=== PATIENT | female | born 1945 | race Caucasian/White ===

== ENCOUNTER 2016-10-06 13:16 | Inpatient (IN) | payer MEDICARE, OTHER ==
[2016-10-06] MEDS ORDERED: Zofran 4 MG/2 ML VIAL IV ONE (13:23)
[2016-10-06] MEDS ORDERED: Sodium Chloride 0.9% 1000 ML 1,000 ML IV SCH (13:30)
[2016-10-06] MEDS ORDERED: MORPHINE SULFATE 10 MG/ML IV ONE (13:32)
[2016-10-06 13:37] LABS: BASOPHIL % 0.3 % (0.0-0.4); Eosinophil % 0.3 % (0.00-5.0); Granulocytes % 70.8 % (36.0-66.0); Mean Cell Volume 97.1 fl (78-100); Mean Corpuscular Hemoglobin 32.1 pg (26-32); Mean Platelet Volume 11.4 fl (6-9.5); Monocytes % 11.6 % (0.0-12.0); Platelet Count 252 K/mm3 (150-450); Red Blood Count 4.21 M/mm3 (4.1-5.4); Red Cell Distribution Width 12.7 % (11.5-14.0); White Blood Count 10.2 K/mm3 (4.0-10.5)
[2016-10-06] MEDS ORDERED: Zofran 4 MG/2 ML VIAL ONE (13:40)
[2016-10-06] MEDS ORDERED: MORPHINE SULFATE 10 MG/ML ONE (13:41)
[2016-10-06 14:00] LABS: ALKALINE PHOSPHATASE 69 U/L (46-116); ANION GAP 12.6 MEQ/L (5-15); CHLORIDE 93 mEq/L (98-107); Carbon Dioxide 35.7 mEq/L (21-32); Glucose 159 MG/DL (70-110); SGOT/AST 23 U/L (15-37); SGPT/ALT 27 U/L (12-78); SODIUM 138 mEq/L (136-145); Total Protein 7.9 gm/dL (6.4-8.2)
[2016-10-06 14:04] LABS: Potassium 2.7 mEq/L (3.5-5.1); TROPONIN < 0.017 ng/ml (0.000-0.056)
--- NOTE | 2016-10-06 14:07 | XRAY ---
Indication: Pain following fall. Comparison: None 2 views of the left femur demonstrates osteopenia, small superior acetabular spurring, and faint vascular calcifications. No other bony, articular, or soft tissue abnormalities.
--- NOTE | 2016-10-06 14:12 | XRAY ---
Indication: Left hip pain following fall. Comparison: None AP pelvis demonstrates osteopenia, small bilateral superior acetabular spurring, lower lumbar degenerative changes, and faint vascular calcifications. No other bony, articular, or soft tissue abnormalities.
[2016-10-06 14:13] LABS: BLOOD UREA NITROGEN 11 mg/dL (9-20)
[2016-10-06] MEDS ORDERED: POTASSIUM CHLORIDE 20 mEq IN WATER 100ML 100 ML IV ONE ×2 (14:13→14:21)
[2016-10-06] MEDS ORDERED: Klor Con 10 MEQ PO ONE ×3 (14:13→19:58)
--- NOTE | 2016-10-06 14:26 | ERPHSYRPT ---
- History of Present Illness Time Seen by Provider: 10/06/16 13:20 Source: patient, family Exam Limitations: other Patient Subjective Stated Complaint: pt here for pain to left hip. fell a week ago and pain has not gotten better,and states she is more weak than normal. pt had old cva and has deficits to right arm and leg Triage Nursing Assessment: pt arrived per ambulance for pain to left hip, no bruising noted able to use left leg . alert,resp easy,skin w/d Physician History: PATIENT WITH HISTORY OF TYPE 2 DIABETES, HYPERTENSION, AND PREVIOUS CVA WITH RIGHT HEMIPARESIS STATES SHE FELL TO FLOOR 1 WEEK AGO AND INJURED HER LEFT HIP. NOW HAS PROGRESSIVE WEAKNESS, UNABLE TO STAND. DENIES HEAD, NECK AND BACK INJURY. Occurred: last week Reason for Fall: slipped, fell from standing pos Injuries/Pain Location: lower extremity Loss of Consciousness: no loss of consciousness Quality: sharpness Severity of Pain-Max: moderate Severity of Pain-Current: moderate Modifying Factors: Improves With: movement Associated Symptoms (Fall): other (WEAKNESS) Allergies/Adverse Reactions: tape Allergy (Uncoded 10/06/16 13:24) Home Medications: Amitriptyline HCl 10 mg [Elavil 10 mg] 20 mg PO HS 10/03/12 [History] Glimepiride 2 mg [Amaryl 2 MG] 1 mg PO DAILY 10/03/12 [History] Dicyclomine HCl 20 mg [Bentyl 20 mg] 20 mg PO TID 11/09/13 [History] Diphenoxylate HCl/Atropine [Lomotil] 1 udtab PO .ASNEEDED 11/09/13 [ History] Fexofenadine/Pseudoephedrine [Anitra-D 24 Hour Tablet] 1 each PO DAILY [History] Metoprolol Tartrate 50 mg [Lopressor 50 MG] 125 mg PO BID 11/09/13 [ History] Amitriptyline HCl 10 mg [Elavil 10 mg] 10 mg DAILY 10/06/16 [History] Bifidobacterium Infantis [Align] 4 mg DAILY 10/06/16 [History] Clonidine HCl [Catapres] 0.2 mg DAILY 10/06/16 [History] Hydralazine HCl 100 mg TID 10/06/16 [History] Hx Tetanus, Diphtheria Vaccination/Date Given: No Hx Influenza Vaccination/Date Given: Yes Hx Pneumococcal Vaccination/Date Given: Yes Immunizations Up to Date: Yes - Review of Systems Constitutional: No Fever, No Chills Eyes: No Symptoms Ears, Nose, & Throat: No Symptoms Respiratory: No Symptoms, No Cough, No Dyspnea Cardiac: No Symptoms, No Chest Pain, No Edema, No Syncope Abdominal/Gastrointestinal: No Symptoms, No Abdominal Pain, No Nausea, No Vomiting, No Diarrhea Genitourinary Symptoms: No Dysuria Musculoskeletal: Injury, Joint Pain, No Back Pain, No Neck Pain Skin: No Rash Neurological: No Dizziness, No Focal Weakness, No Sensory Changes Psychological: No Symptoms Endocrine: No Symptoms All Other Systems: Reviewed and Negative - Past Medical History Pertinent Past Medical History: Yes Neurological History: Paralysis, Stroke ENT History: No Pertinent History Cardiac History: Hypertension Respiratory History: Other Endocrine Medical History: Diabetes Type II Musculoskeletal History: Osteoporosis GI Medical History: No Pertinent History History: No Pertinent History Psycho-Social History: No Pertinent History Female Reproductive Disorders: Ovarian Cancer, Uterine Cancer Other Medical History: hyster at age 26 r/t ovarian cancer - Past Surgical History Past Surgical History: Yes Neuro Surgical History: No Pertinent History Cardiac: No Pertinent History Gastrointestinal: Appendectomy, Cholecystectomy Musculoskeletal: No Pertinent History Female Surgical History: Hysterectomy Other Surgical History: T&A, EGD with esoph dilated,,childbirth x two - Social History Smoking Status: Never smoker How long have you smoked: 40 YEARS Exposure to second hand smoke: No Drug Use: none Patient Lives Alone: No - Female History Hx Last Menstrual Period: post - Nursing Vital Signs Nursing Vital Signs: Initial Vital Signs Temperature 98.2 F Temperature Source Oral Pulse Rate 79 Respiratory Rate 16 Blood Pressure [Left Arm] 161/79 Pain Intensity 4 - Claudio Coma Score Best Eye Response (Claudio): (4) open spontaneously Best Verbal Response ([place]): (5) oriented Best Motor Response (Claudio): (6) obeys commands [place] Total: 15 - Physical Exam General Appearance: no apparent distress, alert Head Injury: no evidence of injury Eye Exam: PERRL/EOMI ENT Exam: airway nml Neck Exam: normal inspection, No tenderness Respiratory/Chest Exam: normal breath sounds, No chest tenderness, No respiratory distress Cardiovascular Exam: normal heart sounds, regular rate/rhythm Gastrointestinal Exam: soft, No tenderness, No distention, No guarding, No ecchymosis Back Exam: normal inspection, No vertebral tenderness Extremity Exam: normal inspection, normal range of motion, pelvis stable, bony point tenderness (TENDERNESS LEFT GREATER TROCHANTER, NO DEFORMITY OR ECCHYMOSIS , LEFT PEDIS PULSE 2+), No deformities Peripheral Pulses: carotid (R): 2+, carotid (L): 2+, femoral (R): 2+, femoral (L ): 2+, dorsalis-pedis (R): 2+, dorsalis-pedis (L): 2+ Neurologic Exam: alert, oriented x 3, cooperative, sensation nml, other (RIGHT HEMIPARESIS), No motor deficits Skin Exam: normal color, warm, dry SpO2: 90 Oxygen Delivery: Room Air - Radiology Exams Left Femur X-ray Interpretation: Discussed w/ radiologist, No Fracture (NO DISLOCATION) Pelvis X-ray Interpretation: Discussed w/ radiologist, No Fracture Ordered Tests: Active Orders 24 hr Category Date Time Status Up With Assistance ROUTINE Activity 10/06/16 16:21 Active Accucheck ACHS Care 10/06/16 16:21 Active Admission/Status Order ROUTINE Care 10/06/16 16:21 Active Call Admit Doctor for Orders ON ADMISSION Care 10/06/16 16:25 Active Clean Catch Urine Specimen STAT Care 10/06/16 13:22 Active Code Status Order ROUTINE Care 10/06/16 16:21 Active IV Care Q6H Care 10/06/16 16:21 Active Neuro Checks Q4H Care 10/06/16 16:21 Active Oxygen-ED Only NASAL CANNULA 4 lpm Care 10/06/16 15:40 Active Stefano Hose, Apply ROUTINE Care 10/06/16 16:21 Active Telemetry ROUTINE Care 10/06/16 16:21 Active Vital Signs Q4H Care 10/06/16 16:21 Active 1800 Calorie ADA Diet 10/06/16 Dinner Active FEMUR Stat Exams 10/06/16 13:20 Completed PELVIS (1 OR 2 VIEWS) Stat Exams 10/06/16 13:21 Completed BLOOD CULTURE Stat Lab 10/06/16 16:14 Ordered CBC W DIFF Stat Lab 10/06/16 12:53 Completed CMP Stat Lab 10/06/16 12:53 Completed CULTURE,URINE Stat Lab 10/06/16 15:25 Received TROPONIN Stat Lab 10/06/16 12:53 Completed UA W/ MICROSCOPIC Stat Lab 10/06/16 15:25 Completed Pulse Oximetry CONTINUOUS RT 10/06/16 16:26 Active Transfer Order Routine Transfer 10/06/16 16:20 Ordered Medication Summary Generic Name Dose Route Start Last Admin Trade Name Jesu PRN Reason Stop Dose Admin Acetaminophen 650 mg 10/06/16 16:21 Tylenol 325 Mg PO 11/05/16 16:20 Q4H PRN PRN PAIN AND/OR FEVER Glimepiride 2 mg 10/07/16 08:00 Amaryl 2 Mg PO 11/06/16 07:59 BREAKFAST JERRY Sodium Chloride 1,000 mls @ 50 mls/hr 10/06/16 13:30 10/06/16 14:03 Sodium Chloride 0.9% 1000 Ml IV 11/05/16 13:29 100 mls/hr .Q20H JERRY Administration Ceftriaxone Sodium/Dextrose 1 g in 50 mls @ 100 mls/hr 10/07/16 10:00 Rocephin 1 Gm-D5w 50 Ml Bag IV 11/06/16 09:59 Q24H10 JERRY Potassium Chloride/Sodium Chloride 1,000 mls @ 75 mls/hr 10/06/16 16:30 Sodium Chloride 0.9% W/ 20 Meq Kcl/Liter IV 11/05/16 16:29 .[id number] JERRY Ondansetron HCl 4 mg 10/06/16 16:21 Zofran 4 Mg/2 Ml Vial IV 11/05/16 16:20 Q6H PRN PRN NAUSEA/VOMITING Potassium Chloride 20 meq 10/06/16 22:00 Klor Con 10 Meq PO 11/05/16 21:59 BID JERRY Discontinued Medications Generic Name Dose Route Start Last Admin Trade Name Freq PRN Reason Stop Dose Admin Potassium Chloride 100 mls @ 50 mls/hr 10/06/16 14:13 10/06/16 14:24 Potassium Chloride 20 Meq In Water 100ml IV 10/06/16 16:12 50 mls/hr STAT ONE Administration Potassium Chloride Confirm 10/06/16 14:21 Potassium Chloride 20 Meq In Water 100ml Administered 10/06/16 14:22 Dose 100 mls @ ud IV .STK-MED ONE Ceftriaxone Sodium/Dextrose 1 g in 50 mls @ 100 mls/hr 10/06/16 16:14 16:25 Rocephin 1 Gm-D5w 50 Ml Bag IV 10/06/16 16:43 100 mls/hr STAT STA Administration Ceftriaxone Sodium/Dextrose Confirm 10/06/16 16:22 Rocephin 1 Gm-D5w 50 Ml Bag Administered 10/06/16 16:23 Dose 1 g in 50 mls @ ud IV .STK-MED ONE Morphine Sulfate 6 mg 10/06/16 13:32 10/06/16 14:04 Morphine Sulfate 10 Mg/Ml IV 10/06/16 13:33 6 mg STAT ONE Administration Morphine Sulfate Confirm 10/06/16 13:41 Morphine Sulfate 10 Mg/Ml Administered 10/06/16 13:42 Dose 10 mg .ROUTE .STK-MED ONE Ondansetron HCl 4 mg 10/06/16 13:23 10/06/16 14:04 Zofran 4 Mg/2 Ml Vial IV 10/06/16 13:24 4 mg STAT ONE Administration Ondansetron HCl Confirm 10/06/16 13:40 Zofran 4 Mg/2 Ml Vial Administered 10/06/16 13:41 Dose 4 mg .ROUTE .STK-MED ONE Potassium Chloride 40 meq 10/06/16 14:13 10/06/16 14:22 Klor Con 10 Meq PO 10/06/16 14:14 40 meq STAT ONE Administration Potassium Chloride Confirm 10/06/16 14:21 Klor Con 10 Meq Administered 10/06/16 14:22 Dose 40 meq PO .STK-MED ONE Lab/Rad Data: Laboratory Result Diagrams 10/06/16 12:53 10/06/16 12:53 Laboratory Results 10/06/16 10/06/16 10/06/16 Range/Units 15:25 12:53 12:53 WBC 10.2 (4.0-10.5) K/mm3 RBC 4.21 (4.1-5.4) M/mm3 Hgb 13.5 (12.0-16.0) gm/dl Hct 40.9 (35-47) % MCV 97.1 (78-100) fl MCH 32.1 H (26-32) pg MCHC 33.0 (32-36) g/dl RDW 12.7 (11.5-14.0) % Plt Count 252 (150-450) K/mm3 MPV 11.4 H (6-9.5) fl Gran % 70.8 H (36.0-66.0) % Lymphocytes % 17.0 L (24.0-44.0) % Monocytes % 11.6 (0.0-12.0) % Eosinophils % 0.3 (0.00-5.0) % Basophils % 0.3 (0.0-0.4) % Basophils # 0.03 (0-0.4) Sodium 138 (136-145) mEq/L Potassium 2.7 L* (3.5-5.1) mEq/L Chloride 93 L (98-107) mEq/L Carbon Dioxide 35.7 H (21-32) mEq/L Anion Gap 12.6 (5-15) MEQ/L BUN 11 (9-20) mg/dL Creatinine 0.82 (0.55-1.30) mg/dl Estimated GFR > 60 ML/MIN Glucose 159 H (70-110) MG/DL Calcium 9.5 (8.5-10.1) mg/dL Total Bilirubin 0.80 (0.2-1.0) mg/dL AST 23 (15-37) U/L ALT 27 (12-78) U/L Alkaline Phosphatase 69 (46-116) U/L Troponin I < 0.017 (0.000-0.056) ng/ml Serum Total Protein 7.9 (6.4-8.2) gm/dL Albumin 3.0 L (3.4-5.0) g/dL Ur Collection Type CATH Urine Color YELLOW (YELLOW) Urine Appearance CLOUDY (CLEAR) Urine pH 5.0 (5-6) Ur Specific [place] 1.020 (1.005-1.025) Urine Protein TRACE (Negative) Urine Ketones NEGATIVE (NEGATIVE) Urine Blood 50 (0-5) Hugh/ul Urine Nitrite POSITIVE (NEGATIVE) Urine Bilirubin NEGATIVE (NEGATIVE) Urine Urobilinogen NORMAL (0-1) mg/dL Ur Leukocyte Esterase 2+ (NEGATIVE) Urine Microscopic RBC 5-10 (0-2) /HPF Urine Microscopic WBC 10-15 (0-5) /HPF Ur Epithelial Cells MODERATE (FEW) /HPF Urine Bacteria PACKED (NEGATIVE) /HPF Urine Glucose NEGATIVE (NEGATIVE) mg/dL Specimen Received 10/06/2016 1545 - Progress Progress Note: 10/06/16 14:30 PATIENT GIVEN IV NORMAL SALINE 100ML/HR, ZOFRAN 4MG, MORPHINE 6MG IV, KLOR CON 40MEQ ORALLY FOR SERUM K 2.7, IV K ISAURA 20MEQ IVPB 10/06/16 16:16 PATIENT GIVEN ROCEPHIN 1GM IVPB AFTER 2 SETS OF BLOOD CULTURES DRAWN Discussed with Dr.: Syed (DISCUSSED WITH DR SYED AT 1530 FOR ADMIT) - Departure Time of Disposition: 16:30 Departure Disposition: In-patient Admission Clinical Impression: HYPOKALEMIA, GENERALIZED WEAKNESS, CONTUSION/STRAIN LEFT HIP, URINARY TRACT INFECTION Condition: Stable Critical Care Time: No
[2016-10-06 16:02] LABS: Bilirubin NEGATIVE (NEGATIVE); Blood 50 Ery/ul (0-5); COMPLETE URINE MICROSCOPIC? YES; Collection Type CATH; Glucose NEGATIVE (NEGATIVE); Leukocyte Esterase 2+ (NEGATIVE)
[2016-10-06 16:03] LABS: ADD URINE CULTURE? YES (NO); Bacteria PACKED /HPF (NEGATIVE); Epithelial Cells MODERATE /HPF (FEW)
[2016-10-06] MEDS ORDERED: ROCEPHIN 1 Gm-D5w 50 ml Bag** 1 G/50 ML IVPB IV STA (16:14)
[2016-10-06] MEDS ORDERED: TYLENOL 325 MG PO PRN (16:21)
[2016-10-06] MEDS ORDERED: Zofran 4 MG/2 ML VIAL IV PRN (16:21)
[2016-10-06] MEDS ORDERED: ROCEPHIN 1 Gm-D5w 50 ml Bag** 1 G/50 ML IVPB IV ONE (16:22)
[2016-10-06] MEDS: Sodium Chloride 0.9% W/ 20 mEq KCl/LITER 1,000 ML IV SCH (18:13)
[2016-10-06] MEDS ORDERED: Lomotil PO PRN (21:03)
[2016-10-06] MEDS: ELAVIL 10 MG PO SCH (21:44)
[2016-10-06] MEDS: Klor Con 10 MEQ PO SCH (21:44)
[2016-10-06] MEDS: Lopressor 50 MG PO SCH (21:45)
[2016-10-06] MEDS: BENTYL 20 MG PO SCH (21:46)
[2016-10-06] MEDS: Apresoline 25 MG TABLET PO SCH (21:46)
[2016-10-06] MEDS: NORCO 7.5/325 MG TAB PO SCH (21:47)
[2016-10-07] MEDS: Amaryl 2 MG PO SCH (07:45)
[2016-10-07] MEDS: Sodium Chloride 0.9% W/ 20 mEq KCl/LITER 1,000 ML IV SCH ×2 (07:45→21:40)
--- NOTE | 2016-10-07 08:58 | PCM.HP ---
History of Present Illness - Chief Complaint Chief Complaint: c/o hip pain History of Present Illness: is a 71 year old female.pt here for pain to left hip. fell a week ago and pain has not gotten better,and states she is more weak than normal. pt had old cva and has deficits to right arm and leg - Review of Systems Constitutional: No Fever, No Chills Eyes: No Symptoms Ears, Nose, & Throat: No Symptoms Respiratory: No Cough, No Short Of Breath Cardiac: No Chest Pain, No Edema, No Syncope Abdominal/Gastrointestinal: No Abdominal Pain, No Nausea, No Vomiting, No Diarrhea Genitourinary Symptoms: No Dysuria Musculoskeletal: No Back Pain, No Neck Pain Skin: No Rash Neurological: No Dizziness, No Focal Weakness, No Sensory Changes Psychological: No Symptoms Endocrine: No Symptoms Hematologic/Lymphatic: No Symptoms Immunological/Allergic: No Symptoms Medications & Allergies Home Medications: Home Medication List Amitriptyline HCl 10 mg [Elavil 10 mg] 20 mg PO HS 10/03/12 [History Confirmed 10/06/16] Glimepiride 2 mg [Amaryl 2 MG] 1 mg PO DAILY 10/03/12 [History Confirmed 10/06/16] Dicyclomine HCl 20 mg [Bentyl 20 mg] 20 mg PO QID 11/09/13 [History Confirmed 10/06/16] Diphenoxylate HCl/Atropine [Lomotil] 1 udtab PO QIDPRN PRN 11/09/13 [ History Confirmed 10/06/16] Fexofenadine/Pseudoephedrine [Anitra-D 24 Hour Tablet] 1 each PO DAILY [History Confirmed 10/06/16] Metoprolol Tartrate 50 mg [Lopressor 50 MG] 125 mg PO BID 11/09/13 [ History Confirmed 10/06/16] Bifidobacterium Infantis [Align] 4 mg PO DAILY 10/06/16 [History Confirmed 10/06] Cholestyramine Light 4 gm [QUESTRAN Light 4 GM Packet] 4 gm PO DAILY 10/06 [History Confirmed 10/06/16] Clonidine HCl [Catapres] 0.2 mg TOP WEEKLY 10/06/16 [History Confirmed 10/06/16] Hydralazine HCl 100 mg PO TID 10/06/16 [History Confirmed 10/06/16] Hydrocodone Bit/Acetaminophen [Hydrocodon-Acetaminoph 7.5-325] 1 each PO BIDPRN PRN 10/06/16 [History Confirmed 10/06/16] Allergies/Adverse Reactions: Allergies Allergy/AdvReac Type Severity Reaction Status Date / Time tape Allergy Uncoded 10/06/16 13:24 - Past Medical History Past Medical History: Yes Neurological History: Paralysis, Stroke ENT History: No Pertinent History Cardiac History: Hypertension Respiratory History: Other Endocrine Medical History: Diabetes Type II Musculoskelatal History: Osteoporosis GI Medical History: No Pertinent History History: No Pertinent History Pyscho-Social History: No Pertinent History Reproductive Disorders: Ovarian Cancer, Uterine Cancer Comment: hyster at age 26 r/t ovarian cancer - Female History Hx Last Menstrual Period: post Are you now?: No - Past Surgical History Past Surgical History: Yes Neuro Surgical History: No Pertinent History Cardiac History: No Pertinent History Respiratory Surgery: No Pertinent History GI Surgical History: Appendectomy, Cholecystectomy Musculskeletal Surgical Hx: No Pertinent History Female Surgical History: Hysterectomy Other Surgical History: T&A, EGD with esoph dilated,,childbirth x two - Social History Smoking Status: Former smoker How long have you smoked: 40 YEARS Exposure to second hand smoke: No Alcohol: None Drug Use: none - Physical Exam Vital Signs: Vital Signs - 24 hr Temp Pulse Resp BP Pulse Ox 10/07/16 08:00 98.7 F 82 20 120/57 93 L 10/07/16 07:15 93 L 10/07/16 04:00 98.5 F 79 20 135/60 99 10/07/16 00:00 98.8 F 79 18 111/54 96 10/06/16 21:00 98.0 F 108 H 18 140/88 97 10/06/16 20:07 99.0 F 108 H 18 140/88 97 10/06/16 20:04 96 10/06/16 18:06 18 10/06/16 17:41 98.2 F 79 161/79 95 10/06/16 17:09 95 10/06/16 17:05 99.4 F 110 H 20 167/78 94 L 10/06/16 16:54 99.4 F 110 H 18 167/78 10/06/16 16:53 90 L 10/06/16 16:26 95 10/06/16 15:20 79 16 161/79 97 10/06/16 13:48 98.2 F 122 H 16 164/82 90 L 10/06/16 13:22 113 H 16 150/72 91 L 10/06/16 13:16 16 147/72 95 Oxygen-Last 24 hours O2 Percentage 5 Liters = 40% O2 Percentage 4 Liters = 36% O2 Percentage 4 Liters = 36% O2 Percentage 1 Liter = 24% O2 Percentage 1 Liter = 24% O2 Percentage 4 Liters = 36% O2 Percentage 4 Liters = 36% O2 Percentage 4 Liters = 36% General Appearance: no apparent distress, alert Neurologic Exam: alert, oriented x 3, cooperative, normal mood/affect, nml cerebellar function, nml station & gait, sensation nml, No motor deficits Eye Exam: PERRL/EOMI, eyes nml inspection Ears, Nose, Throat Exam: normal ENT inspection, TMs normal, pharynx normal, moist mucous membranes Neck Exam: normal inspection, non-tender, supple, full range of motion Respiratory Exam: normal breath sounds, lungs clear, No respiratory distress Cardiovascular Exam: regular rate/rhythm, normal heart sounds, normal peripheral pulses Gastrointestinal/Abdomen Exam: soft, normal bowel sounds, No tenderness, No mass Back Exam: normal inspection, normal range of motion, No CVA tenderness, No vertebral tenderness Extremity Exam: normal inspection, normal range of motion, pelvis stable Skin Exam: normal color, warm, dry, No rash Lymphatic Exam: No adenopathy Results - Labs Lab/Micro Results: Accuchecks Date 10/06/16 Accucheck Value: 131 Accuchecks Date 10/06/16 Accucheck Value: 131 - Other Procedures and Tests Respiratory Therapy 10/06/16 17:08 Oxygen NASAL CANNULA 4 lpm Assessment/Plan (1) Urinary tract infectious disease Current Visit: Yes Status: Acute Code(s): N39.0 - URINARY TRACT INFECTION, SITE NOT SPECIFIED (2) Dehydration Current Visit: Yes Status: Acute Code(s): E86.0 - DEHYDRATION (3) Fall Current Visit: Yes Status: Acute Code(s): W19.XXXA - UNSPECIFIED FALL, INITIAL ENCOUNTER (4) Hypertensive disorder, systemic arterial Current Visit: Yes Status: Chronic Code(s): I27.2 - OTHER SECONDARY PULMONARY HYPERTENSION
[2016-10-07] MEDS: ROCEPHIN 1 Gm-D5w 50 ml Bag** 1 G/50 ML IVPB IV SCH (09:18)
[2016-10-07] MEDS: BENTYL 20 MG PO SCH ×4 (09:19→21:58)
[2016-10-07] MEDS: Apresoline 25 MG TABLET PO SCH ×3 (09:19→21:58)
[2016-10-07] MEDS: Klor Con 10 MEQ PO SCH ×2 (09:19→21:58)
[2016-10-07] MEDS: Acidophilus TABLET PO SCH (09:19)
[2016-10-07] MEDS: Lopressor 50 MG PO SCH ×2 (09:20→21:59)
[2016-10-07] MEDS: QUESTRAN Light 4 GM Packet PO SCH (09:26)
[2016-10-07] MEDS: CLARITIN-D 24HR TABLET PO SCH (09:26)
[2016-10-07] MEDS ORDERED: PSEUDOEPHEDRINE PO SCH (10:00)
[2016-10-07] MEDS ORDERED: Catapres TTS-2 PATCH TOP SCH (10:00)
[2016-10-07] MEDS ORDERED: FEXOFENADINE PO SCH (10:00)
[2016-10-07 10:37] LABS: Mean Cell Volume 99.7 fl (78-100); Mean Corpuscular Hemoglobin 31.7 pg (26-32); Mean Platelet Volume 10.6 fl (6-9.5); Platelet Count 266 K/mm3 (150-450); Red Blood Count 3.94 M/mm3 (4.1-5.4); Red Cell Distribution Width 12.8 % (11.5-14.0); White Blood Count 8.2 K/mm3 (4.0-10.5)
[2016-10-07 11:08] LABS: ALBUMIN 2.4 g/dL (3.4-5.0); ANION GAP 10.9 MEQ/L (5-15); BLOOD UREA NITROGEN 13 mg/dL (9-20); CHLORIDE 98 mEq/L (98-107); Carbon Dioxide 33.3 mEq/L (21-32); Glucose 164 MG/DL (70-110); Potassium 3.9 mEq/L (3.5-5.1); SODIUM 138 mEq/L (136-145)
[2016-10-07 11:24] LABS: ALKALINE PHOSPHATASE 65 U/L (46-116); SGOT/AST 27 U/L (15-37); SGPT/ALT 23 U/L (12-78); Total Protein 6.8 gm/dL (6.4-8.2)
[2016-10-07] MEDS: ELAVIL 10 MG PO SCH (21:58)
[2016-10-08] MEDS: Amaryl 2 MG PO SCH (10:18)
[2016-10-08] MEDS: BENTYL 20 MG PO SCH ×4 (10:20→21:43)
[2016-10-08] MEDS: Acidophilus TABLET PO SCH (10:20)
[2016-10-08] MEDS: Klor Con 10 MEQ PO SCH ×2 (10:21→21:43)
[2016-10-08] MEDS: CLARITIN-D 24HR TABLET PO SCH (10:23)
[2016-10-08] MEDS: Lopressor 50 MG PO SCH ×2 (10:24→21:40)
[2016-10-08] MEDS: ROCEPHIN 1 Gm-D5w 50 ml Bag** 1 G/50 ML IVPB IV SCH (10:31)
[2016-10-08] MEDS: QUESTRAN Light 4 GM Packet PO SCH (10:33)
[2016-10-08] MEDS: Apresoline 25 MG TABLET PO SCH ×3 (10:47→21:42)
[2016-10-08] MEDS: Sodium Chloride 0.9% W/ 20 mEq KCl/LITER 1,000 ML IV SCH ×2 (11:17→23:34)
--- NOTE | 2016-10-08 15:41 | PROG NOTE ---
DATE: 10/08/16 Chart reviewed. Events noted. At the time of this evaluation, patient is alert, awake, and comfortable. States her left hip pain has improved. Denies any other complaints. VITALS: BP 170/76, heart rate 91, respiratory rate 18, temperature 98.4, O2 saturations of 92% on 4 liters. HEENT: No pallor or icterus is noted. NECK: No JVD present. CVS: S1 and S2 present. RESPIRATORY: Breath sounds bilaterally diminished and clear to auscultation. ABDOMEN: Obese, soft, nontender. NEURO: She is alert and oriented X 3. EXTREMITIES: Reveals no edema on bilateral lower extremities. Range of movement of left hip is mildly painful. LABORATORY DATA: There were no new labs today. Urine cultures from 10/06/16 show gram negative ID. Blood cultures are pending. Medications were reviewed. ASSESSMENT: 71 y/o woman with impression: 1. CONTUSION OF LEFT HIP - CLINICALLY IMPROVED. 2. URINARY TRACT INFECTION. 3. HYPOKALEMIA RESOLVED STATUS POST TREATMENT. 4. HYPERTENSION/CORONARY ARTERY DISEASE. 5. PRIOR HISTORY OF CEREBROVASCULAR ACCIDENT. 6. DIABETES MELLITUS. PLAN: 1. Continue broad spectrum IV antibiotics. 2. Continue PRN analgesics. 3. PT/OT evaluation. 4. Discharge planning (patient has agreed to go to [facility]). Plan was discussed with patient. She seems to be in understanding and agreement. Discussed with patient's nurse and high risk case manager.
[2016-10-08] MEDS: ELAVIL 10 MG PO SCH (21:43)
[2016-10-09] MEDS: Klor Con 10 MEQ PO SCH ×2 (08:18→22:43)
[2016-10-09] MEDS: Acidophilus TABLET PO SCH (08:18)
[2016-10-09] MEDS: CLARITIN-D 24HR TABLET PO SCH (08:19)
[2016-10-09] MEDS: Apresoline 25 MG TABLET PO SCH ×3 (08:19→22:42)
[2016-10-09] MEDS: Amaryl 2 MG PO SCH (08:19)
[2016-10-09] MEDS: QUESTRAN Light 4 GM Packet PO SCH (08:20)
[2016-10-09] MEDS: BENTYL 20 MG PO SCH ×4 (08:20→22:43)
[2016-10-09] MEDS: Lopressor 50 MG PO SCH ×2 (08:33→22:42)
--- NOTE | 2016-10-09 09:54 | PCM.NOTE ---
Date and Time: 10/09/16951 Subjective Assessment: doing better - Review of Systems Constitutional: No Fever, No Chills Eyes: No Symptoms Ears, Nose, & Throat: No Symptoms Respiratory: No Cough, No Short Of Breath Cardiac: No Chest Pain, No Edema, No Syncope Abdominal/Gastrointestinal: No Abdominal Pain, No Nausea, No Vomiting, No Diarrhea Genitourinary Symptoms: No Dysuria Musculoskeletal: No Back Pain, No Neck Pain Skin: No Rash Neurological: No Dizziness, No Focal Weakness, No Sensory Changes Psychological: No Symptoms Endocrine: No Symptoms Hematologic/Lymphatic: No Symptoms Immunological/Allergic: No Symptoms Objective Exam General Appearance: no apparent distress, alert Neurologic Exam: alert, oriented x 3, cooperative, normal mood/affect, nml cerebellar function, sensation nml, No motor deficits Skin Exam: normal color, warm, dry Eye Exam: PERRL, EOMI, eyes nml inspection Ears, Nose, Throat Exam: normal ENT inspection, pharynx normal, moist mucous membranes Neck Exam: normal inspection, non-tender, supple, full range of motion Respiratory Exam: normal breath sounds, lungs clear, No respiratory distress Cardiovascular Exam: regular rate/rhythm, normal heart sounds Gastrointestinal/Abdomen Exam: soft, No tenderness, No mass Extremity Exam: normal inspection, normal range of motion Back Exam: normal inspection, normal range of motion, No CVA tenderness, No vertebral tenderness Pelvic Exam: deferred Rectal Exam: deferred OBJECTIVE DATA Vital Signs: Vital Signs - 24 hr Temp Pulse Resp BP Pulse Ox 10/09/16 08:00 18 10/09/16 07:52 97.8 F 87 18 163/73 94 L 10/09/16 07:34 94 L 10/09/16 04:00 97.9 F 90 20 158/65 93 L 10/09/16 00:00 98.0 F 95 H 19 148/67 94 L 10/08/16 20:28 98 10/08/16 20:00 20 10/08/16 19:57 98.4 F 83 20 131/62 94 L 10/08/16 16:43 98.1 F 75 18 141/84 91 L 10/08/16 16:00 98.4 F 85 18 180/76 94 L 10/08/16 12:00 18 10/08/16 11:29 98.4 F 85 18 180/76 94 L Oxygen-Last 24 hours O2 Percentage 2 Liters = 28% O2 Percentage 2 Liters = 28% O2 Percentage 2 Liters = 28% O2 Percentage 4 Liters = 36% O2 Percentage 4 Liters = 36% O2 Percentage 2 Liters = 28% Pain Assessment - Last Documented Pain Scale Used FLACC Intake and Output: Intake & Output 10/06/16 10/07/16 10/08/16 10/09/16 11:59 11:59 11:59 11:59 Intake Total 220 3603 4021 Output Total 400 Balance 220 3203 4021 Weight 78.67 kg Lab Results: Accuchecks Date 10/08/16 Date 10/08/16 Date 10/08/16 Time 21:00 Time 16:30 Time 11:30 Accucheck Value: 117 Accucheck Value: 145 Accucheck Value: 169 Assessment/Plan (1) Urinary tract infectious disease Current Visit: Yes Status: Acute Code(s): N39.0 - URINARY TRACT INFECTION, SITE NOT SPECIFIED (2) Dehydration Current Visit: Yes Status: Resolved Code(s): E86.0 - DEHYDRATION (3) Fall Current Visit: Yes Status: Resolved Code(s): W19.XXXA - UNSPECIFIED FALL, INITIAL ENCOUNTER (4) Hypertensive disorder, systemic arterial Current Visit: Yes Status: Chronic Code(s): I27.2 - OTHER SECONDARY PULMONARY HYPERTENSION
[2016-10-09] MEDS: ROCEPHIN 1 Gm-D5w 50 ml Bag** 1 G/50 ML IVPB IV SCH (11:00)
[2016-10-09] MEDS: Sodium Chloride 0.9% W/ 20 mEq KCl/LITER 1,000 ML IV SCH (12:28)
[2016-10-09] MEDS: ELAVIL 10 MG PO SCH (22:42)
[2016-10-09] MEDS: NORCO 7.5/325 MG TAB PO SCH (22:42)
--- NOTE | 2016-10-10 09:06 | PCM.DS ---
Discharge Summary Date of Admission: 10/07/16 08:56 Admitting Physician: MALGORZATA QUEEN Primary Care Provider: MALGORZATA QUEEN Allergies Allergies tape Allergy (Uncoded 10/06/16 13:24) Hospital Summary - Hospital Course Hospital Course: Chief Complaint Diagnosis UTI, HYPOKALEMIA Allergies Allergy/AdvReac Type Severity Reaction Status Date / Time tape Allergy Uncoded 10/06/16 13:24 Vital Signs (Last 24 hours) Temp Pulse Resp BP Pulse Ox 10/10/16 07:42 98.3 F 68 18 173/72 95 10/10/16 07:31 94 L 10/10/16 04:00 97.7 F 71 20 147/67 95 10/10/16 00:00 98.1 F 82 19 161/74 94 L 10/09/16 20:00 97.4 F 84 19 128/61 93 L 10/09/16 16:00 98.6 F 75 18 121/63 95 10/09/16 12:00 18 10/09/16 11:43 98.4 F 75 18 132/63 96 Home Medications Medication Instructions Recorded Confirmed Last Taken Type Bifidobacterium Infantis [Align] 4 mg PO DAILY 10/06/16 10/06/16 Unknown History Cholestyramine Light 4 gm 4 gm PO DAILY 10/06/16 10/06/16 Unknown History [QUESTRAN Light 4 GM Packet] Clonidine HCl [Catapres] 0.2 mg TOP WEEKLY 10/06/16 10/06/16 09/24/16 History Hydralazine HCl 100 mg PO TID 10/06/16 10/06/16 Unknown History Hydrocodone Bit/Acetaminophen 1 each PO BIDPRN PRN 10/06/16 10/06/16 Unknown History [Hydrocodon-Acetaminoph 7.5-325] Current Medications Generic Name Dose Route Start Last Admin Trade Name Freq PRN Reason Stop Dose Admin Acetaminophen 650 mg 10/06/16 16:21 Tylenol 325 Mg PO 11/05/16 16:20 Q4H PRN PRN PAIN AND/OR FEVER Hydrocodone Bitart/Acetaminophen 1 tab 10/06/16 21:15 10/09/16 22:42 Dafter 7.5/325 Mg Tab PO 10/11/16 21:14 1 tab BID PRN JERRY Administration Amitriptyline HCl 20 mg 10/06/16 22:00 10/09/16 22:42 Elavil 10 Mg PO 11/05/16 21:59 20 mg HS JERRY Administration Cholestyramine Resin 4 gm 10/07/16 10:00 10/09/16 08:20 Questran Light 4 Gm Packet PO 11/06/16 09:59 4 gm DAILY JERRY Administration Clonidine HCl 0.2 mg 10/07/16 10:00 10/07/16 12:33 Catapres Tts-2 Patch TOP 11/06/16 09:59 0.2 mg Q7D JERRY Administration Dicyclomine HCl 20 mg 10/06/16 22:00 10/09/16 22:43 Bentyl 20 Mg PO 11/05/16 21:59 20 mg QID JERRY Administration Diphenoxylate HCl/Atropine 1 tablet 10/06/16 21:03 Lomotil PO 11/05/16 21:02 QID PRN PRN DIARRHEA Glimepiride 1 mg 10/07/16 08:00 10/09/16 08:19 Amaryl 2 Mg PO 11/06/16 07:59 1 mg BREAKFAST JERRY Administration Hydralazine HCl 100 mg 10/06/16 22:00 10/09/16 22:42 Apresoline 25 Mg Tablet PO 11/05/16 21:59 100 mg TID JERRY Administration Ceftriaxone Sodium/Dextrose 1 g in 50 mls @ 100 mls/hr 10/07/16 10:00 11:00 Rocephin 1 Gm-D5w 50 Ml Bag IV 11/06/16 09:59 100 mls/hr Q24H10 JERRY Administration Potassium Chloride/Sodium Chloride 1,000 mls @ 75 mls/hr 10/06/16 16:30 10/09 12:28 Sodium Chloride 0.9% W/ 20 Meq Kcl/Liter IV 11/05/16 16:29 75 mls/hr .[id number] JERRY Administration Lactobacillus Acidophilus 1 tab 10/07/16 10:00 10/09/16 08:18 Acidophilus Tablet PO 11/06/16 09:59 1 tab DAILY JERRY Administration Loratadine/Pseudoephedrine Sulfate 1 each 10/07/16 10:00 10/09/16 08:19 Claritin-D 24hr Tablet PO 11/06/16 09:59 1 each DAILY JERRY Administration Metoprolol Tartrate 125 mg 10/06/16 22:00 10/09/16 22:42 Lopressor 50 Mg PO 11/05/16 21:59 125 mg BID JERRY Administration Ondansetron HCl 4 mg 10/06/16 16:21 Zofran 4 Mg/2 Ml Vial IV 11/05/16 16:20 Q6H PRN PRN NAUSEA/VOMITING Potassium Chloride 20 meq 10/06/16 22:00 10/09/16 22:43 Klor Con 10 Meq PO 11/05/16 21:59 20 meq BID JERRY Administration Discontinued Medications Generic Name Dose Route Start Last Admin Trade Name Freq PRN Reason Stop Dose Admin Sodium Chloride 1,000 mls @ 50 mls/hr 10/06/16 13:30 10/06/16 14:03 Sodium Chloride 0.9% 1000 Ml IV 11/05/16 13:29 100 mls/hr .Q20H JERRY Administration Potassium Chloride 100 mls @ 50 mls/hr 10/06/16 14:13 10/06/16 14:24 Potassium Chloride 20 Meq In Water 100ml IV 10/06/16 16:12 50 mls/hr STAT ONE Administration Potassium Chloride Confirm 10/06/16 14:21 Potassium Chloride 20 Meq In Water 100ml Administered 10/06/16 14:22 Dose 100 mls @ ud IV .STK-MED ONE Ceftriaxone Sodium/Dextrose 1 g in 50 mls @ 100 mls/hr 10/06/16 16:14 16:25 Rocephin 1 Gm-D5w 50 Ml Bag IV 10/06/16 16:43 100 mls/hr STAT STA Administration Ceftriaxone Sodium/Dextrose Confirm 10/06/16 16:22 Rocephin 1 Gm-D5w 50 Ml Bag Administered 10/06/16 16:23 Dose 1 g in 50 mls @ ud IV .STK-MED ONE Morphine Sulfate 6 mg 10/06/16 13:32 10/06/16 14:04 Morphine Sulfate 10 Mg/Ml IV 10/06/16 13:33 6 mg STAT ONE Administration Morphine Sulfate Confirm 10/06/16 13:41 Morphine Sulfate 10 Mg/Ml Administered 10/06/16 13:42 Dose 10 mg .ROUTE .STK-MED ONE Ondansetron HCl 4 mg 10/06/16 13:23 10/06/16 14:04 Zofran 4 Mg/2 Ml Vial IV 10/06/16 13:24 4 mg STAT ONE Administration Ondansetron HCl Confirm 10/06/16 13:40 Zofran 4 Mg/2 Ml Vial Administered 10/06/16 13:41 Dose 4 mg .ROUTE .STK-MED ONE Potassium Chloride 40 meq 10/06/16 14:13 10/06/16 14:22 Klor Con 10 Meq PO 10/06/16 14:14 40 meq STAT ONE Administration Potassium Chloride Confirm 10/06/16 14:21 Klor Con 10 Meq Administered 10/06/16 14:22 Dose 40 meq PO .STK-MED ONE Potassium Chloride Confirm 10/06/16 19:58 Klor Con 10 Meq Administered 10/06/16 19:59 Dose 20 meq PO .STK-MED ONE Intake & Output (Last 24 hours) 10/07/16 10/08/16 10/09/16 10/10/16 11:59 11:59 11:59 11:59 Intake Total 1416 3603 4021 2830 Output Total 400 3850 Balance 1416 3203 4021 -1020 Weight 78.67 kg 78.67 kg Microbiology Results (Last 24 hours) 10/09/16 12:01 Catherized - Pending Orders (Last 24 hours) Category Date Time Status Catheter Care Record Q6 Care 10/09/16 09:58 Active Govea [Catheter-Ajo Govea] STAT Care 10/09/16 09:57 Active CULTURE,URINE Routine Lab 10/09/16 12:01 Received - Vitals & Intake/Output Vital Signs: Vital Signs Temperature 98.3 F 10/10/16 07:42 Pulse Rate 68 10/10/16 07:42 Respiratory Rate 18 10/10/16 07:42 Blood Pressure 173/72 10/10/16 07:42 O2 Sat by Pulse Oximetry 95 10/10/16 07:42 Oxygen-Last Documented O2 Percentage 2 Liters = 28% Intake & Output: Intake & Output 07/14/17 07/15/17 07/16/17 07/17/17 11:59 11:59 11:59 11:59 Intake Total 220 3603 4021 2830 Output Total 400 3850 Balance 220 3203 4021 -1020 Weight 78.67 kg - Lab Result Diagrams: 10/07/16 09:31 10/07/16 10:30 Lab Results-Last 24 Hrs: Accuchecks Date 10/09/16 Date 10/09/16 Date 10/09/16 Time 21:00 Time 16:30 Time 11:30 Accucheck Value: 107 Accucheck Value: 85 Accucheck Value: 166 Micro Results-Entire Visit: Accuchecks Date 10/09/16 Date 10/09/16 Date 10/09/16 Time 21:00 Time 16:30 Time 11:30 Accucheck Value: 107 Accucheck Value: 85 Accucheck Value: 166 - Procedures and Test Procedures and Tests throughout Hospitalization: Therapy Orders & Screens 10/08/16 11:45 PT Eval & Treat (MD Order) ROUTINE Evaluate: Yes Treat: Yes Reason for Eval:: hip p[ain Diagnosis: UTI, HYPOKALEMIA Discharge Exam General Appearance: no apparent distress, alert Neurologic Exam: alert, oriented x 3, cooperative, normal mood/affect, nml cerebellar function, sensation nml, No motor deficits Skin Exam: normal color, warm, dry Eye Exam: PERRL, EOMI, eyes nml inspection Ears, Nose, Throat Exam: normal ENT inspection, pharynx normal, moist mucous membranes Neck Exam: normal inspection, non-tender, supple, full range of motion Respiratory Exam: normal breath sounds, lungs clear, No respiratory distress Cardiovascular Exam: regular rate/rhythm, normal heart sounds Gastrointestinal/Abdomen Exam: soft, No tenderness, No mass Extremity Exam: normal inspection, normal range of motion Back Exam: normal inspection, normal range of motion, No CVA tenderness, No vertebral tenderness Pelvic Exam: deferred Rectal Exam: deferred Final Diagnosis/Problem List - Final Discharge Diagnosis/Problem (1) Urinary tract infectious disease Current Visit: Yes Status: Resolved (2) Dehydration Current Visit: Yes Status: Resolved (3) Fall Current Visit: Yes Status: Resolved (4) Hypertensive disorder, systemic arterial Current Visit: Yes Status: Chronic - Discharge Discharge Date: 10/10/16 Disposition: DC TO [facility] Condition: Stable Prescriptions: Continue Amitriptyline HCl 10 mg [Elavil 10 mg] 20 mg PO HS Glimepiride 2 mg [Amaryl 2 MG] 1 mg PO DAILY Dicyclomine HCl 20 mg [Bentyl 20 mg] 20 mg PO QID Diphenoxylate HCl/Atropine [Lomotil] 1 udtab PO QIDPRN PRN PRN Reason: Diarrhea Metoprolol Tartrate 50 mg [Lopressor 50 MG] 125 mg PO BID Fexofenadine/Pseudoephedrine [Anitra-D 24 Hour Tablet] 1 each PO DAILY Clonidine HCl [Catapres] 0.2 mg TOP WEEKLY Hydralazine HCl 100 mg PO TID Bifidobacterium Infantis [Align] 4 mg PO DAILY Cholestyramine Light 4 gm [QUESTRAN Light 4 GM Packet] 4 gm PO DAILY Hydrocodone Bit/Acetaminophen [Hydrocodon-Acetaminoph 7.5-325] 1 each PO BIDPRN PRN PRN Reason: Pain Additional Instructions: Physical therapy and occupational therapy, on consult Follow up with: MALGORZATA QUEEN [Primary Care Provider] - 1 Week Forms: Patient Portal Information
[2016-10-10] MEDS: Klor Con 10 MEQ PO SCH (09:08)
[2016-10-10] MEDS: Apresoline 25 MG TABLET PO SCH (09:08)
[2016-10-10] MEDS: QUESTRAN Light 4 GM Packet PO SCH (09:08)
[2016-10-10] MEDS: Lopressor 50 MG PO SCH (09:10)
[2016-10-10] MEDS: Acidophilus TABLET PO SCH (09:10)
[2016-10-10] MEDS: CLARITIN-D 24HR TABLET PO SCH (09:10)
[2016-10-10] MEDS: Amaryl 2 MG PO SCH (09:11)
[2016-10-10] MEDS: BENTYL 20 MG PO SCH (09:11)
[2016-10-10] MEDS: ROCEPHIN 1 Gm-D5w 50 ml Bag** 1 G/50 ML IVPB IV SCH (10:56)
--- NOTE | 2016-10-10 11:46 | XRAY ---
Indication: custodial placement. Comparison: October 27, 2010. Portable chest rotated today with cardiac silhouette obscuring left lung base. Remaining lungs clear. Heart is not enlarged. Vascularity normal. Bony thorax intact again with mild osteopenia, old right eighth rib fracture, and old right humeral neck fracture. Impression: Limited nonacute chest with chronic features.
[2016-10-10 12:29] VITALS: BP 133/65; PULSE 79; O2SAT 92
== END 2016-10-10 13:24 | DRG 641 ==
LOC: ED 13:16 → MED SURG 16:48 → OBSVTOIN 10-07 08:56
PROVIDERS: ADMIT General Practice; ATTEND General Practice
DX: E86.0 Dehydration (principal); S70.02XA Contusion of left hip, initial encounter; W01.198D Fall on same level from slipping, tripping and stumbling with subsequent striking against other object, subsequent encounter; I27.2 Other secondary pulmonary hypertension; E11.9 Type 2 diabetes mellitus without complications; M81.0 Age-related osteoporosis without current pathological fracture; E87.6 Hypokalemia; Z85.43 Personal history of malignant neoplasm of ovary; Z85.42 Personal history of malignant neoplasm of other parts of uterus; Z86.73 Personal history of transient ischemic attack (TIA), and cerebral infarction without residual deficits
CPT/HCPCS: 36000; 36415; 71010; 72170; 73552; 80053; 81000; 82962; 83036; 84484; 85025; 85027; 87040; 87077; 87086; 87186; 93268; 94760; 96360; 96361; 96365; 96367; 96374; 96375; 99285; G0378; J0696; J2270; J2405; J3480; A9270-GY

== ENCOUNTER 2016-10-20 14:47 | Emergency (ER) | payer MEDICARE, OTHER ==
[2016-10-20] MEDS ORDERED: Sodium Chloride 0.9% 1000 ML 1,000 ML IV SCH (15:00)
[2016-10-20] MEDS ORDERED: Sodium Chloride 0.9% 1000 ML 1,000 ML ONE (15:05)
--- NOTE | 2016-10-20 15:36 | XRAY ---
Indication: CVA symptoms. Multiple contiguous axial images obtained through the head without contrast. Comparison: January 22, 2015. Stable age-appropriate global atrophy, mild periventricular degenerative micro-ischemia, and large old left MCA infarct with ex vacuo effect. No acute intracranial hemorrhage, hydrocephalus, or mass effect. Fourth ventricle is midline. rhea calvarium intact. Visualized paranasal sinuses and mastoid air cells are clear. Impression: Stable atrophy, degenerative micro-ischemia, and old left MCA infarct. No new/acute intracranial abnormalities. CT DI 70.00
--- NOTE | 2016-10-20 15:38 | XRAY ---
Indication: Left hand numbness. CVA symptoms. Comparison: October 10, 2016. Portable chest remains clear. Heart and mediastinal structures within normal limits. Bony thorax intact again with mild osteopenia, mild degenerative changes, old right 8th rib fracture, and old right humeral neck fracture. Impression: Nonacute chest with chronic features.
--- NOTE | 2016-10-20 15:39 | ERPHSYRPT ---
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.pt has fc in place Physician History: patient developed new pareasethsias in her left arm today; has hx of old CVA from years ago involving her right side; no changes there; no KRAUS; no SOB or CP; no LOC or seizures; no difficulty swallowing ; no trouble with mentation or speech; no visual changes; no recent illness; trauma or travel Timing/Duration: today, hour(s) (3h), constant, gradual onset, worse Severity: mild Character of Deficits: altered sensation (left arm) Baseline/Normal Cognition: alert oriented x 3 Current Cognition: alert oriented x 3 Baseline Gait: walks only w/assistance Associated Symptoms: paresthesia (left arm ) Allergies/Adverse Reactions: tape Allergy (Uncoded 10/20/16 14:56) Home Medications: Amitriptyline HCl 10 mg [Elavil 10 mg] 20 mg PO HS 10/03/12 [History] Glimepiride 2 mg [Amaryl 2 MG] 1 mg PO DAILY 10/03/12 [History] Dicyclomine HCl 20 mg [Bentyl 20 mg] 20 mg PO QID 11/09/13 [History] Diphenoxylate HCl/Atropine [Lomotil] 1 udtab PO QIDPRN PRN 11/09/13 [ History] Metoprolol Tartrate 50 mg [Lopressor 50 MG] 125 mg PO BID 11/09/13 [ History] Bifidobacterium Infantis [Align] 4 mg PO DAILY 10/06/16 [History] Cholestyramine Light 4 gm [QUESTRAN Light 4 GM Packet] 4 gm PO DAILY 10/06 [History] Clonidine HCl [Catapres] 0.2 mg TOP WEEKLY 10/06/16 [History] Hydralazine HCl 100 mg PO TID 10/06/16 [History] Hydrocodone Bit/Acetaminophen [Hydrocodon-Acetaminoph 7.5-325] 1 each PO BIDPRN PRN 10/06/16 [History] Fexofenadine/Pseudoephedrine [Anitra-D 24 Hour Tablet] 1 ea DAILY 10/20/16 [ History] Hx Tetanus, Diphtheria Vaccination/Date Given: No Hx Influenza Vaccination/Date Given: Yes Hx Pneumococcal Vaccination/Date Given: Yes Immunizations Up to Date: Yes - Review of Systems Constitutional: No Symptoms Eyes: No Symptoms Ears, Nose, & Throat: No Symptoms Respiratory: No Cough, No Dyspnea, No Wheezing Cardiac: No Chest Pain, No Palpitations, No Syncope Abdominal/Gastrointestinal: No Abdominal Pain, No Nausea, No Vomiting, No Diarrhea Genitourinary Symptoms: No Symptoms Musculoskeletal: No Symptoms Skin: No Symptoms Neurological: Parasthesia (left arm new), No Focal Weakness (no new ones), No Headache, No Seizure Psychological: No Symptoms Endocrine: No Symptoms Hematologic/Lymphatic: No Symptoms Immunological/Allergic: No Symptoms - Past Medical History Pertinent Past Medical History: Yes Neurological History: Paralysis, Stroke ENT History: No Pertinent History Cardiac History: Hypertension Respiratory History: Other Endocrine Medical History: Diabetes Type II Musculoskeletal History: Osteoporosis GI Medical History: No Pertinent History History: No Pertinent History Psycho-Social History: No Pertinent History Female Reproductive Disorders: Ovarian Cancer, Uterine Cancer Other Medical History: hyster at age 26 r/t ovarian cancer - Past Surgical History Past Surgical History: Yes Neuro Surgical History: No Pertinent History Cardiac: No Pertinent History Respiratory: No Pertinent History Gastrointestinal: Appendectomy, Cholecystectomy Musculoskeletal: No Pertinent History Female Surgical History: Hysterectomy Other Surgical History: T&A, EGD with esoph dilated,,childbirth x two - Social History Smoking Status: Former smoker How long have you smoked: 40 YEARS Exposure to second hand smoke: No Alcohol Use: None Drug Use: none Patient Lives Alone: No Significant Family History: heart disease, hypertension - Female History Hx Last Menstrual Period: post Hx Now: No - Nursing Vital Signs Nursing Vital Signs: Initial Vital Signs Temperature 98.0 F 10/20/16 14:48 Pulse Rate 93 H 10/20/16 14:48 Respiratory Rate 16 10/20/16 14:48 Blood Pressure 162/90 10/20/16 14:48 O2 Sat by Pulse Oximetry 93 L 10/20/16 14:48 Pain Scale Pain Intensity 0 - [place] Coma Scale Best Eye Response (Claudio): (4) open spontaneously Best Verbal Response (Claudio): (5) oriented Best Motor Response (Claudio): (6) obeys commands Claudio Total: 15 - Physical Exam General Appearance: mild distress, alert, anxiety Eye Exam: bilateral eye: normal inspection, PERRL, EOMI, other (vision ok; fundi benign; no papiledema) Ears, Nose, Throat Exam: normal ENT inspection, TMs normal, pharynx normal, moist mucous membranes Neck Exam: normal inspection, non-tender, supple, full range of motion, No meningismus, No carotid bruit, No JVD Respiratory: normal breath sounds, lungs clear, airway intact, No chest tenderness, No respiratory distress, No wheezing Cardiovascular: regular rate/rhythm, normal heart sounds, normal peripheral pulses, capillary refill 2-3 sec, No murmur Gastrointestinal: soft, normal bowel sounds, No tenderness, No guarding, No rebound, No organomegaly Pelvic Exam: deferred Rectal Exam: deferred Back Exam: normal inspection, normal range of motion, No CVA tenderness, No vertebral tenderness, No rash Extremity Exam: normal inspection, parasthesia (left arm), No zen's sign, No pedal edema Peripheral Pulses: carotid (R): 4+, carotid (L): 4+, femoral (R): 4+, femoral (L ): 4+, dorsalis-pedis (R): 3+, dorsalis-pedis (L): 3+ Mental Status: alert, oriented x 3, cooperative safety leader Exam: normal hearing, normal speech, PERRL Coordination/Gait: negative Romberg's sign Motor/Sensory: no motor deficit (none new), negative Babinski's sign, sensory deficit (hypoaesthesa left hand> arm) Skin Exam: normal color, warm, dry, No rash SpO2 Interpretation: normal SpO2: 95 Oxygen Delivery: Room Air - Course Nursing assessment & vital signs reviewed: Yes EKG Interpreted by Me: RATE (94), Sinus Rhythm, Left Pocahontas Deviation, NORMAL INTERVALS, NORMAL QRS, Non-specific ST Changes Rhythm Strip: Rate (94), Normal Sinus Rhythm - Radiology Exams Chest X-ray Interpretation: Reviewed by me, Teleradiologist Report, Negative - CT Exams Head CT Interpretation: Negative, Tele-radiologist Report, No/Intracranial Hemorrhag Ordered Tests: Active Orders 24 hr Category Date Time Status Bilingual Manager STAT Care 10/20/16 14:58 Active EKG-ER Only STAT Care 10/20/16 14:58 Active IV Insertion STAT Care 10/20/16 14:58 Active Oxygen-ED Only NASAL CANNULA 2 lpm Care 10/20/16 14:58 Active Pulse Oximetry (ED) STAT Care 10/20/16 14:58 Active Re-Check Vital Signs STAT Care 10/20/16 14:58 Active CHEST 1 VIEW (PORTABLE) Stat Exams 10/20/16 14:58 Completed HEAD WITHOUT CONTRAST [CT] Stat Exams 10/20/16 14:58 Completed CBC W DIFF Stat Lab 10/20/16 15:45 Completed CMP Stat Lab 10/20/16 15:45 Completed CULTURE,URINE Stat Lab 10/20/16 15:45 Received Lactic Acid Stat Lab 10/20/16 15:43 Completed PROTIME WITH INR Stat Lab 10/20/16 15:45 Received UA W/ MICROSCOPIC Stat Lab 10/20/16 15:45 Completed Medication Summary Generic Name Dose Route Start Last Admin Trade Name Freq PRN Reason Stop Dose Admin Sodium Chloride 1,000 mls @ 50 mls/hr 10/20/16 15:00 10/20/16 15:05 Sodium Chloride 0.9% 1000 Ml IV 11/19/16 14:59 50 mls/hr .Q20H JERRY Administration Lab/Rad Data: Laboratory Result Diagrams 10/20/16 15:45 10/20/16 15:45 Laboratory Results 10/20/16 10/20/16 10/20/16 Range/Units 15:45 15:45 15:45 WBC 11.2 H (4.0-10.5) K/mm3 RBC 4.81 (4.1-5.4) M/mm3 Hgb 15.1 (12.0-16.0) gm/dl Hct 45.5 (35-47) % MCV 94.6 (78-100) fl MCH 31.4 (26-32) pg MCHC 33.2 (32-36) g/dl RDW 12.8 (11.5-14.0) % Plt Count 394 (150-450) K/mm3 MPV 11.0 H (6-9.5) fl Gran % 66.4 H (36.0-66.0) % Lymphocytes % 23.6 L (24.0-44.0) % Monocytes % 7.9 (0.0-12.0) % Eosinophils % 1.7 (0.00-5.0) % Basophils % 0.4 (0.0-0.4) % Basophils # 0.05 (0-0.4) INR 1.13 (0.8-3.0) Sodium 137 (136-145) mEq/L Potassium 3.4 L (3.5-5.1) mEq/L Chloride 99 (98-107) mEq/L Carbon Dioxide 27.5 (21-32) mEq/L Anion Gap 13.7 (5-15) MEQ/L BUN 16 (9-20) mg/dL Creatinine 1.18 (0.55-1.30) mg/dl Estimated GFR 48 ML/MIN Glucose 120 H (70-110) MG/DL Lactic Acid (0.4-2.0) Calcium 9.7 (8.5-10.1) mg/dL Total Bilirubin 0.30 (0.2-1.0) mg/dL AST 28 (15-37) U/L ALT 39 (12-78) U/L Alkaline Phosphatase 103 (46-116) U/L Serum Total Protein 8.4 H (6.4-8.2) gm/dL Albumin 3.7 (3.4-5.0) g/dL Ur Collection Type Urine Color (YELLOW) Urine Appearance (CLEAR) Urine pH (5-6) Ur Specific [place] (1.005-1.025) Urine Protein (Negative) Urine Ketones (NEGATIVE) Urine Blood (0-5) Hugh/ul Urine Nitrite (NEGATIVE) Urine Bilirubin (NEGATIVE) Urine Urobilinogen (0-1) mg/dL Ur Leukocyte Esterase (NEGATIVE) Urine Microscopic RBC (0-2) /HPF Urine Microscopic WBC (0-5) /HPF Ur Epithelial Cells (FEW) /HPF Urine Bacteria (NEGATIVE) /HPF Urine Yeast (NEGATIVE) /HPF Urine Glucose (NEGATIVE) mg/dL Specimen Received 10/20/16 10/20/16 Range/Units 15:45 15:43 WBC (4.0-10.5) K/mm3 RBC (4.1-5.4) M/mm3 Hgb (12.0-16.0) gm/dl Hct (35-47) % MCV (78-100) fl MCH (26-32) pg MCHC (32-36) g/dl RDW (11.5-14.0) % Plt Count (150-450) K/mm3 MPV (6-9.5) fl Gran % (36.0-66.0) % Lymphocytes % (24.0-44.0) % Monocytes % (0.0-12.0) % Eosinophils % (0.00-5.0) % Basophils % (0.0-0.4) % Basophils # (0-0.4) INR (0.8-3.0) Sodium (136-145) mEq/L Potassium (3.5-5.1) mEq/L Chloride (98-107) mEq/L Carbon Dioxide (21-32) mEq/L Anion Gap (5-15) MEQ/L BUN (9-20) mg/dL Creatinine (0.55-1.30) mg/dl Estimated GFR ML/MIN Glucose (70-110) MG/DL Lactic Acid 1.2 (0.4-2.0) Calcium (8.5-10.1) mg/dL Total Bilirubin (0.2-1.0) mg/dL AST (15-37) U/L ALT (12-78) U/L Alkaline Phosphatase (46-116) U/L Serum Total Protein (6.4-8.2) gm/dL Albumin (3.4-5.0) g/dL Ur Collection Type CLEAN CATCH Urine Color YELLOW (YELLOW) Urine Appearance HAZY (CLEAR) Urine pH 5.0 (5-6) Ur Specific [place] 1.020 (1.005-1.025) Urine Protein TRACE (Negative) Urine Ketones NEGATIVE (NEGATIVE) Urine Blood NEGATIVE (0-5) Hugh/ul Urine Nitrite NEGATIVE (NEGATIVE) Urine Bilirubin NEGATIVE (NEGATIVE) Urine Urobilinogen NORMAL (0-1) mg/dL Ur Leukocyte Esterase 2+ (NEGATIVE) Urine Microscopic RBC 0-2 (0-2) /HPF Urine Microscopic WBC 5-10 (0-5) /HPF Ur Epithelial Cells RARE (FEW) /HPF Urine Bacteria FEW (NEGATIVE) /HPF Urine Yeast MODERATE (NEGATIVE) /HPF Urine Glucose NEGATIVE (NEGATIVE) mg/dL Specimen Received 10/20/16 1600 - Progress Progress: improved, re-examined (after cT and improved) Progress Note: 10/20/16 16:[address]; family at bedside; CT and CXR unremarkable fo rany acute change; labs look good except low K= slight at 3.4; u/a shows hazy, ph 5.0 with 2 + lueks and few bact: lactic acid ok 1.13 10/20/16 16:43 rechecked and patient doing well; still some numbness but no weakness left upper extremity; family at bedside; discussed findings; treatment plan discussed ; will return to correction; will cover UTI with atbs while c&s pending; instructions given Counseled pt/family regarding: lab results, diagnosis, need for follow-up, rad results - Departure Time of Disposition: 16:44 Departure Disposition: Extended Care Facility Clinical Impression: UTI (urinary tract infection), Numbness and tingling in left arm Condition: Stable Critical Care Time: No Instructions: Numbness/tingling, Urinary Tract Infection (UTI) Additional Instructions: continue prior meds and instructions; check on ua C&S 48-72 hours Follow-up with family doctor as directed. Call for appointment. Return if any problems. If you smoke please stop. Call or follow up with your family doctor for assistance if you need it to stop. Please wear your seatbelt when driving. Have a nice day. Thank you for allowing us to participate in your care today. :o) Dr Kirit Cotton Prescriptions: Cephalexin Mh 250 mg [Keflex 250 mg] 250 mg PO QID #40 capsule
[2016-10-20 15:54] LABS: BASOPHIL % 0.4 % (0.0-0.4); Eosinophil % 1.7 % (0.00-5.0); Granulocytes % 66.4 % (36.0-66.0); Lymphocytes % 23.6 % (24.0-44.0); Mean Cell Volume 94.6 fl (78-100); Mean Corpuscular Hemoglobin 31.4 pg (26-32); Monocytes % 7.9 % (0.0-12.0); Platelet Count 394 K/mm3 (150-450); Red Blood Count 4.81 M/mm3 (4.1-5.4); Red Cell Distribution Width 12.8 % (11.5-14.0); White Blood Count 11.2 K/mm3 (4.0-10.5)
[2016-10-20 16:30] LABS: INR 1.13 (0.8-3.0); PROTIME 12.8 SECONDS (9.95-12.35)
[2016-10-20 16:32] LABS: ALBUMIN 3.7 g/dL (3.4-5.0); ANION GAP 13.7 MEQ/L (5-15); BILIRUBIN,TOTAL 0.3 mg/dL (0.2-1.0); Bacteria FEW /HPF (NEGATIVE); Bilirubin NEGATIVE (NEGATIVE); Blood NEGATIVE Ery/ul (0-5); COMPLETE URINE MICROSCOPIC? YES; Carbon Dioxide 27.5 mEq/L (21-32); Collection Type CLEAN CATCH; Epithelial Cells RARE /HPF (FEW); Glucose NEGATIVE (NEGATIVE); Leukocyte Esterase 2+ (NEGATIVE); Potassium 3.4 mEq/L (3.5-5.1); Total Protein 8.4 gm/dL (6.4-8.2)
[2016-10-20 16:33] LABS: ADD URINE CULTURE? YES (NO); Yeast MODERATE /HPF (NEGATIVE)
[2016-10-20 17:05] VITALS: BP 158/85; PULSE 98; O2SAT 97
== END 2016-10-20 17:04 ==
LOC: ED 14:47
DX: N39.0 Urinary tract infection, site not specified (principal); R20.0 Anesthesia of skin; I25.2 Old myocardial infarction; Z79.899 Other long term (current) drug therapy; Z79.891 Long term (current) use of opiate analgesic; I10 Essential (primary) hypertension; E11.9 Type 2 diabetes mellitus without complications; Z86.73 Personal history of transient ischemic attack (TIA), and cerebral infarction without residual deficits
CPT/HCPCS: 36000; 36415; 70450; 71010; 80053; 81000; 83605; 85025; 85610; 87086; 93005; 93041; 96360; 96361; 99284

== ENCOUNTER 2020-09-02 16:44 | Emergency (ER) | payer MEDICARE, OTHER ==
--- NOTE | 2020-09-02 16:48 | ERPHSYRPT ---
- History of Present Illness Time Seen by Provider: 09/02/20 16:48 Source: patient, EMS, halfway records Exam Limitations: clinical condition Physician History: This is a 74-year-old white female resident of [facility] who has complained of back pain for approximately 1 week. She was found to have a urinary tract infection and is being treated with antibiotics. However, earlier today the patient stated that she has had worsening pain despite antibiotic treatment. They have also noticed personality changes as well. Patient has a history of stroke in 1987 and has paralysis and and flaccidity of her right upper and lower extremities. Patient has a history of hypertension and diabetes. There was no actual fall or traumatic injury to her back. However, despite treatment with antibiotic therapy her back pain in the lumbar level has worsened. Timing/Duration: week(s) (1) Method of Injury: other Quality: aching Back Pain Location: lumbar spine Severity of Pain-Max: mild Severity of Pain-Current: mild Modifying Factors: Improves With: movement Associated Symptoms: lower back pain, No fever, No chills, No urinary incontinence, No loss of bowel control, No nausea, No vomiting Previous symptoms: same symptoms as today, recently treated Allergies/Adverse Reactions: tape Allergy (Mild, Uncoded 09/02/20 16:59) Home Medications: Amitriptyline HCl 10 mg [Elavil 10 mg] 20 mg PO HS 10/03/12 [History] Glimepiride 2 mg [Amaryl 2 MG] 1 mg PO DAILY 10/03/12 [History] Dicyclomine HCl 20 mg [Bentyl 20 mg] 20 mg PO QID 11/09/13 [History] Diphenoxylate HCl/Atropine [Lomotil] 1 udtab PO QIDPRN PRN 11/09/13 [History] Metoprolol Tartrate 50 mg [Lopressor 50 MG] 125 mg PO BID 11/09/13 [History] Bifidobacterium Infantis [Align] 4 mg PO DAILY 10/06/16 [History] Cholestyramine Light 4 gm [QUESTRAN Light 4 GM Packet] 4 gm PO DAILY [History] Hydralazine HCl 100 mg PO TID 10/06/16 [History] Hydrocodone Bit/Acetaminophen [Hydrocodon-Acetaminoph 7.5-325] 1 each PO BIDPRN PRN 10/06/16 [History] cloNIDine HCL [Catapres] 0.2 mg TOP WEEKLY 10/06/16 [History] Fexofenadine/Pseudoephedrine [Anitra-D 24 Hour Tablet] 1 ea DAILY 10/20/16 [History] Hx Tetanus, Diphtheria Vaccination/Date Given: No Hx Influenza Vaccination/Date Given: Yes Hx Pneumococcal Vaccination/Date Given: Yes Travel Risk - International Travel Have you traveled outside of the country in past 3 weeks: No - Coronavirus Screening Are you exhibiting any of the following symptoms?: No Close contact with a COVID-19 positive Pt in past 14-21 Days: No - Review of Systems Constitutional: No Symptoms Eyes: No Symptoms Ears, Nose, & Throat: No Symptoms Respiratory: No Symptoms Cardiac: No Symptoms Abdominal/Gastrointestinal: No Symptoms Genitourinary Symptoms: Flank Pain (Bilateral) Musculoskeletal: Back Pain (Lumbar level bilateral paraspinous muscle.) Skin: No Symptoms Neurological: No Symptoms Psychological: No Symptoms Endocrine: No Symptoms Hematologic/Lymphatic: No Symptoms Immunological/Allergic: No Symptoms All Other Systems: Reviewed and Negative - Past Medical History Pertinent Past Medical History: Yes Neurological History: Paralysis, Stroke ENT History: No Pertinent History Cardiac History: Hypertension Respiratory History: Other Endocrine Medical History: Diabetes Type II Musculoskeletal History: Osteoporosis GI Medical History: No Pertinent History History: No Pertinent History Psycho-Social History: No Pertinent History Female Reproductive Disorders: Ovarian Cancer, Uterine Cancer Other Medical History: hyster at age 26 r/t ovarian cancer - Past Surgical History Past Surgical History: Yes Neuro Surgical History: No Pertinent History Cardiac: No Pertinent History Respiratory: No Pertinent History Gastrointestinal: Appendectomy, Cholecystectomy Musculoskeletal: No Pertinent History Female Surgical History: Hysterectomy Other Surgical History: T&A, EGD with esoph dilated,,childbirth x two - Social History Smoking Status: Former smoker How long have you smoked: 40 YEARS Exposure to second hand smoke: No Alcohol Use: None Drug Use: none Patient Lives Alone: No Significant Family History: heart disease, hypertension - Nursing Vital Signs Nursing Vital Signs: Initial Vital Signs Temperature 97.4 F 09/02/20 16:44 Pulse Rate 72 09/02/20 16:44 Blood Pressure 181/95 09/02/20 16:44 O2 Sat by Pulse Oximetry 95 09/02/20 16:44 Pain Scale Pain Intensity [Left Lower 9 Posterior Back] Pain Intensity 5 - Physical Exam General Appearance: no apparent distress, alert, anxiety Eye Exam: PERRL/EOMI, eyes nml inspection Ears, Nose, Throat Exam: normal ENT inspection, moist mucous membranes Neck Exam: normal inspection, non-tender, supple, full range of motion Respiratory Exam: normal breath sounds, lungs clear, No chest tenderness, No respiratory distress Cardiovascular Exam: regular rate/rhythm, normal heart sounds, normal peripheral pulses Gastrointestinal Exam: soft, normal bowel sounds, No tenderness Rectal Exam: not done Back Exam: normal inspection, normal range of motion, CVA tenderness, No vertebral tenderness Extremity Exam: normal inspection, normal range of motion, pelvis stable Neurologic Exam: alert, oriented x 3, cooperative, juvenile court judge II-XII nml as tested, normal mood/affect, nml cerebellar function, nml station & gait, sensation nml Skin Exam: normal color, warm, dry Lymphatic Exam: No adenopathy SpO2 Interpretation: normal O2 Delivery: Room Air - Course Nursing assessment & vital signs reviewed: Yes EKG Interpreted by Me: RATE (72), Sinus Rhythm, Left [place] Deviation, NORMAL INTERVALS, NORMAL QRS, Non-specific ST Changes, Other (There are no acute ischemic changes on today's EKG. When compared to EKG of 10/20/2016 there are no changes.) Ordered Tests: Active Orders 24 hr Category Date Time Status Chief Operator Reformer STAT Care 09/02/20 16:51 Active EKG-ER Only STAT Care 09/02/20 16:50 Active IV Insertion STAT Care 09/02/20 16:50 Active Pulse Oximetry (ED) STAT Care 09/02/20 16:50 Active cath [Cath for Specimen-Straight] STAT Care 09/02/20 17:35 Active HEAD WITHOUT CONTRAST [CT] Stat Exams 09/02/20 16:55 Completed LUMBAR SPINE W/O [CT] Stat Exams 09/02/20 16:52 Completed CBC W DIFF Stat Lab 09/02/20 17:30 Completed CMP Stat Lab 09/02/20 17:30 Completed CULTURE,URINE Stat Lab 09/02/20 17:35 Received NT PRO BNP Stat Lab 09/02/20 17:30 Completed PROTIME WITH INR Stat Lab 09/02/20 17:30 Completed TROPONIN Q3H Lab 09/02/20 17:30 Completed TROPONIN Q3H Lab 09/02/20 20:00 Ordered TROPONIN Q3H Lab 09/02/20 23:00 Ordered TROPONIN Q3H Lab 09/03/20 02:00 Ordered TROPONIN Q3H Lab 09/03/20 05:00 Ordered UA W/RFX UR CULTURE Stat Lab 09/02/20 17:35 Completed Medication Summary Generic Name Dose Route Start Last Admin Trade Name Freq PRN Reason Stop Dose Admin Sodium Chloride 1,000 mls @ 50 mls/hr 09/02/20 17:00 09/02/20 17:39 Sodium Chloride 0.9% 1000 Ml IV 10/02/20 16:59 50 mls/hr .Q20H JERRY Administration Discontinued Medications Generic Name Dose Route Start Last Admin Trade Name Freq PRN Reason Stop Dose Admin Ceftriaxone Sodium/Dextrose 1 g in 50 mls @ 100 mls/hr 09/02/20 18:39 09/02/20 18:49 Rocephin 1 Gm-D5w 50 Ml Bag IV 09/02/20 19:08 100 ml/hr STAT STA 100 mls/hr Administration Ceftriaxone Sodium/Dextrose Confirm 09/02/20 18:47 Rocephin 1 Gm-D5w 50 Ml Bag Administered 09/02/20 18:48 Dose 1 g in 50 mls @ ud IV .STK-MED ONE Lab/Rad Data: Laboratory Result Diagrams 09/02/20 17:30 09/02/20 17:30 Laboratory Results 09/02/20 09/02/20 09/02/20 Range/Units 17:35 17:30 17:30 WBC (4.0-10.5) K/mm3 RBC (4.1-5.4) M/mm3 Hgb (12.0-16.0) gm/dl Hct (35-47) % MCV (78-100) fl MCH (26-32) pg MCHC (32-36) g/dl RDW (11.5-14.0) % Plt Count (150-450) K/mm3 MPV (7.5-11.0) fl Gran % (36.0-66.0) % Eos # (Auto) (0-0.5) Absolute Lymphs (auto) (1.0-4.6) Absolute Monos (auto) (0.0-1.3) Lymphocytes % (24.0-44.0) % Monocytes % (0.0-12.0) % Eosinophils % (0.00-5.0) % Basophils % (0.0-0.4) % Absolute Granulocytes (1.4-6.9) Basophils # (0-0.4) PT 16.5 H (9.95-12.35) SECONDS INR 1.45 (0.8-3.0) Sodium (137-145) mmol/L Potassium (3.5-5.1) mmol/L Chloride (98-107) mmol/L Carbon Dioxide (22-30) mmol/L Anion Gap (5-15) MEQ/L BUN (7-17) mg/dL Creatinine (0.52-1.04) mg/dL Estimated GFR ML/MIN Glucose (74-106) mg/dL Calcium (8.4-10.2) mg/dL Total Bilirubin (0.2-1.3) mg/dL AST (14-36) U/L ALT (0-35) U/L Alkaline Phosphatase (38-126) U/L Troponin I < 0.012 (0.000-0.034) ng/mL NT-Pro-B Natriuret Pep (0-900) pg/mL Serum Total Protein (6.3-8.2) g/dL Albumin (3.5-5.0) g/dL Urine Color YELLOW (YELLOW) Urine Appearance CLEAR (CLEAR) Urine pH 5.0 (5-6) Ur Specific [place]azy 1.018 (1.005-1.025) Urine Protein NEGATIVE (Negative) Urine Ketones NEGATIVE (NEGATIVE) Urine Blood NEGATIVE (0-5) Hugh/ul Urine Nitrite NEGATIVE (NEGATIVE) Urine Bilirubin NEGATIVE (NEGATIVE) Urine Urobilinogen NEGATIVE (0-1) mg/dL Ur Leukocyte Esterase SMALL (NEGATIVE) Urine WBC (Auto) 16-25 (0-5) /HPF Urine RBC (Auto) 11-15 (0-2) /HPF U Epithel Cells (Auto) NONE (FEW) /HPF Urine Bacteria (Auto) NONE (NEGATIVE) /HPF Urine Mucus (Auto) SLIGHT (NEGATIVE) /HPF Urine Culture Reflexed YES (NO) Urine Glucose NEGATIVE (NEGATIVE) mg/dL 06/09/21 06/09/21 Range/Units 17:30 17:30 WBC 17.6 H (4.0-10.5) K/mm3 RBC 5.08 (4.1-5.4) M/mm3 Hgb 15.0 (12.0-16.0) gm/dl Hct 46.7 (35-47) % MCV 91.9 (78-100) fl MCH 29.5 (26-32) pg MCHC 32.1 (32-36) g/dl RDW 14.3 H (11.5-14.0) % Plt Count 516 H (150-450) K/mm3 MPV 9.6 (7.5-11.0) fl Gran % 77.4 H (36.0-66.0) % Eos # (Auto) 0.22 (0-0.5) Absolute Lymphs (auto) 2.31 (1.0-4.6) Absolute Monos (auto) 1.41 H (0.0-1.3) Lymphocytes % 13.2 L (24.0-44.0) % Monocytes % 8.0 (0.0-12.0) % Eosinophils % 1.3 (0.00-5.0) % Basophils % 0.1 (0.0-0.4) % Absolute Granulocytes 13.59 H (1.4-6.9) Basophils # 0.02 (0-0.4) PT (9.95-12.35) SECONDS INR (0.8-3.0) Sodium 136 L (137-145) mmol/L Potassium 4.2 (3.5-5.1) mmol/L Chloride 99 (98-107) mmol/L Carbon Dioxide 25 (22-30) mmol/L Anion Gap 15.6 H (5-15) MEQ/L BUN 17 (7-17) mg/dL Creatinine 0.58 (0.52-1.04) mg/dL Estimated GFR > 60.0 ML/MIN Glucose 126 H (74-106) mg/dL Calcium 9.3 (8.4-10.2) mg/dL Total Bilirubin 0.70 (0.2-1.3) mg/dL AST 51 H (14-36) U/L ALT 58 H (0-35) U/L Alkaline Phosphatase 104 (38-126) U/L Troponin I (0.000-0.034) ng/mL NT-Pro-B Natriuret Pep 724 (0-900) pg/mL Serum Total Protein 6.6 (6.3-8.2) g/dL Albumin 3.9 (3.5-5.0) g/dL Urine Color (YELLOW) Urine Appearance (CLEAR) Urine pH (5-6) Ur Specific [place]azy (1.005-1.025) Urine Protein (Negative) Urine Ketones (NEGATIVE) Urine Blood (0-5) Hugh/ul Urine Nitrite (NEGATIVE) Urine Bilirubin (NEGATIVE) Urine Urobilinogen (0-1) mg/dL Ur Leukocyte Esterase (NEGATIVE) Urine WBC (Auto) (0-5) /HPF Urine RBC (Auto) (0-2) /HPF U Epithel Cells (Auto) (FEW) /HPF Urine Bacteria (Auto) (NEGATIVE) /HPF Urine Mucus (Auto) (NEGATIVE) /HPF Urine Culture Reflexed (NO) Urine Glucose (NEGATIVE) mg/dL - Progress Progress Note: 09/02/20 17:30 CAT scan of the head without contrast shows no new/acute intracranial process or findings CAT scan of the lumbar spine without contrast shows no acute fracture or spinal canal stenosis. Counseled pt/family regarding: lab results, diagnosis, need for follow-up, rad results - Departure Departure Disposition: Home Clinical Impression: Flank pain, UTI (urinary tract infection) Condition: Stable Critical Care Time: No Referrals: EMILIANO GAMBLE [Primary Care Provider] - Additional Instructions: Drink plenty of fluids. Take antibiotic medication as prescribed. Same other halfway orders
[2020-09-02] MEDS ORDERED: Sodium Chloride 0.9% 1000 ML 1,000 ML IV SCH (17:00)
--- NOTE | 2020-09-02 17:18 | XRAY ---
Indication: "Personality change.". Multiple contiguous axial images obtained through the head without contrast. Comparison: October 20, 2016. Again age-appropriate global atrophy, mild periventricular degenerative micro-ischemia, and large old left MCA infarct. No acute intracranial hemorrhage, hydrocephalus, or mass effect. Fourth ventricle is midline. Bony calvarium intact. Visualized paranasal sinuses and master cells are clear. Impression: Again atrophy, degenerative micro-ischemia, and old left MCA infarct. No new/acute findings.
--- NOTE | 2020-09-02 17:25 | XRAY ---
Indication: Worsening back pain. Multiple contiguous axial images obtained through the lumbar spine. Sagittal and coronal reformatted images obtained. Comparison: September 20, 2017. Osseous structures remain demineralized. No large disc herniation or spinal canal stenosis. Stable bilateral L4-S1 degenerative facet hypertrophy. Sagittal and coronal reformatted images again demonstrates normal lumbar alignment with disc spaces maintained. Stable remote T12 superior endplate fracture versus Schmorl node. No acute compression fracture or subluxation. Visualized noncontrasted soft tissues again demonstrates scattered aortoiliac calcifications, left renal cysts, and cholecystectomy clips. Impression: 1. Stable osteopenia, L4-S1 degenerative facet hypertrophy, remote T12 endplate fracture versus Schmorl node, and left renal cysts. 2. Negative acute fracture or spinal canal stenosis.
[2020-09-02 17:35] LABS: Absolute Neutrophil Ct (ANC) 13.59 (1.4-6.9); BASOPHIL % 0.1 % (0.0-0.4); Basophil (Absolute #) 0.02 (0-0.4); Eosinophil % 1.3 % (0.00-5.0); Eosinophil (Absolute #) 0.22 (0-0.5); Hematocrit 46.7 % (35-47); Lymphocyte (Absolute #) 2.31 (1.0-4.6); Lymphocytes % 13.2 % (24.0-44.0); Mean Cell Volume 91.9 fl (78-100); Mean Corpuscular Hemoglobin 29.5 pg (26-32); Mean Corpuscular Hgb Concent. 32.1 g/dl (32-36); Mean Platelet Volume 9.6 fl (7.5-11.0); Monocyte (Absolute #) 1.41 (0.0-1.3); Neutrophil % 77.4 % (36.0-66.0); Platelet Count 516 K/mm3 (150-450); Red Blood Count 5.08 M/mm3 (4.1-5.4); Red Cell Distribution Width 14.3 % (11.5-14.0); White Blood Count 17.6 K/mm3 (4.0-10.5)
[2020-09-02] MEDS ORDERED: Sodium Chloride 0.9% 1000 ML 1,000 ML ONE (17:38)
[2020-09-02 17:41] LABS: INR 1.45 (0.8-3.0); PROTIME 16.5 SECONDS (9.95-12.35)
[2020-09-02 17:56] LABS: ALBUMIN 3.9 g/dL (3.5-5.0); ALKALINE PHOSPHATASE 104 U/L (38-126); ANION GAP 15.6 MEQ/L (5-15); BLOOD UREA NITROGEN 17 mg/dL (7-17); CHLORIDE 99 mmol/L (98-107); Calcium 9.3 mg/dL (8.4-10.2); Carbon Dioxide 25 mmol/L (22-30); Creatinine 1 0.58 mg/dL (0.52-1.04); EST GLOMERULAR FILTRATION RATE > 60.0 ML/MIN; Glucose 126 mg/dL (74-106); Potassium 4.2 mmol/L (3.5-5.1); SGOT/AST 51 U/L (14-36); SGPT/ALT 58 U/L (0-35); SODIUM 136 mmol/L (137-145); Total Protein 6.6 g/dL (6.3-8.2)
[2020-09-02 18:08] LABS: NT PRO BNP 724 pg/mL (0-900)
[2020-09-02 18:19] LABS: Appearance CLEAR (CLEAR); Bilirubin NEGATIVE (NEGATIVE); Blood NEGATIVE Ery/ul (0-5); Glucose NEGATIVE (NEGATIVE); Ketones NEGATIVE (NEGATIVE); Leukocyte Esterase SMALL (NEGATIVE); Mucus SLIGHT /HPF (NEGATIVE); Nitrite NEGATIVE (NEGATIVE); Protein,Urine Dip NEGATIVE (Negative); Specific Gravity 1.018 (1.005-1.025); Urobilinogen NEGATIVE mg/dL (0-1)
[2020-09-02] MEDS ORDERED: ROCEPHIN 1 Gm-D5w 50 ml Bag** 1 G/50 ML IVPB IV STA (18:39)
[2020-09-02] MEDS ORDERED: ROCEPHIN 1 Gm-D5w 50 ml Bag** 1 G/50 ML IVPB IV ONE (18:47)
[2020-09-02 20:52] VITALS: BP 132/81; PULSE 80; O2SAT 94
== END 2020-09-02 20:59 ==
LOC: ED 16:44
DX: R10.9 Unspecified abdominal pain (principal); N39.0 Urinary tract infection, site not specified; Z79.899 Other long term (current) drug therapy; E11.9 Type 2 diabetes mellitus without complications; I10 Essential (primary) hypertension; Z85.43 Personal history of malignant neoplasm of ovary; Z85.42 Personal history of malignant neoplasm of other parts of uterus
CPT/HCPCS: 36000; 36415; 70450; 72131; 80053; 81001; 83880; 84484; 85025; 85610; 87086; 93005; 93041; 94760; 96365; 99284; P9612; J0696

== ENCOUNTER 2020-09-13 22:04 | Emergency (ER) | payer MEDICARE, OTHER ==
[2020-09-13 23:16] LABS: BASOPHIL % 0.5 % (0.0-0.4); Basophil (Absolute #) 0.05 (0-0.4); Eosinophil % 1.9 % (0.00-5.0); Hematocrit 40.9 % (35-47); Hemoglobin 13.2 gm/dl (12.0-16.0); Lymphocyte (Absolute #) 2.33 (1.0-4.6); Mean Cell Volume 91.3 fl (78-100); Mean Corpuscular Hemoglobin 29.5 pg (26-32); Mean Corpuscular Hgb Concent. 32.3 g/dl (32-36); Mean Platelet Volume 9.9 fl (7.5-11.0); Monocyte (Absolute #) 0.82 (0.0-1.3); Monocytes % 7.7 % (0.0-12.0); Neutrophil % 67.9 % (36.0-66.0); Platelet Count 290 K/mm3 (150-450); Red Blood Count 4.48 M/mm3 (4.1-5.4); Red Cell Distribution Width 14.3 % (11.5-14.0); White Blood Count 10.6 K/mm3 (4.0-10.5)
--- NOTE | 2020-09-14 02:58 | ERPHSYRPT ---
- History of Present Illness Time Seen by Provider: 09/13/20 22:30 Patient Subjective Stated Complaint: Patient states " My right arm/shouolder is hurting and I think I am having a stroke." Triage Nursing Assessment: Patient arrived to ED via ambulance. Patient alert and able to give , her location, and the current president but thought the year was 1999. Patient pleasant and smiling upon arrival. Patient stated her right shoulder has hurt since 300pm today. Patient states she thinks since her right shoulder is hurting that she is having a stroke. Lungs clear bilateral A/P throughout. Patient denies any chest pain. Patient denies any SOB. Respiratory regular and easy and non-labored. No S/S of acute respiratory distress noted. Cap refill < 3 seconds. Skin turgor 4-5 seconds. Oral mucosa moist. No visual S/S of dehydration noted. + BS times 4 quads. ABD soft, round, non-distended. Patient denies any pain or discomfort upon palpitation. Patient incontinent of B/B and is 2 assist with transfers and ADL'S. Patient right side is flaccid R/T old CVA in 2017. Patient answers questions but it does take a moment for patient to answer as if it takes a minute for her to process and to g et words out. Patient wears briefs/pull ups daily. NH states they did give patient 1 325 ASA. Patient noted with wound to right heel that patient states she has had for over 10 years. Patient noted noted with non-pitting edema to bilateral lower extremities. Patient denies any N/V. Patient denies any dizziness. Patient denies H/A or change in vision. Apical pusle rate WNL. + Radial and pedal pulses noted bilateral. Patient able to follow instructions without difficulty. Patient smiling and talking with RN. Physician History: Patient is a 74-year-old white female who presents by ambulance from extended- care facility because she has had some right shoulder pain over the course of today and feels that she may be having a stroke. She had a previous stroke in the remote past that affected her right side she has no new deficits on the left side. Timing/Duration: today Severity: mild Modifying Factors: Improves With: nothing Associated Symptoms: denies symptoms Allergies/Adverse Reactions: tape Allergy (Mild, Uncoded 06/20/21 23:42) Home Medications: Glimepiride 2 mg [Amaryl 2 MG] 1 mg PO DAILY 10/03/12 [History] Dicyclomine HCl 20 mg [Bentyl 20 mg] 20 mg PO QID 11/09/13 [History] Diphenoxylate HCl/Atropine [Lomotil] 1 udtab PO QIDPRN PRN 11/09/13 [History] Metoprolol Tartrate 50 mg [Lopressor 50 MG] 125 mg PO BID 11/09/13 [History] Cholestyramine Light 4 gm [QUESTRAN Light 4 GM Packet] 4 gm PO DAILY 10/06/16 [History] Hydralazine HCl 100 mg PO TID 10/06/16 [History] Hydrocodone Bit/Acetaminophen [Hydrocodon-Acetaminoph 7.5-325] 1 each PO TIDPRN PRN 10/06/16 [History] cloNIDine HCL [Catapres] 0.2 mg TOP WEEKLY 10/06/16 [History] Fexofenadine/Pseudoephedrine [Anitra-D 24 Hour Tablet] 1 ea PO DAILY 10/20/16 [History] Ascorbic Acid [Vitamin C] 1,000 mg PO DAILY 09/13/20 [History] Atorvastatin Calcium [Lipitor 40Mg] 40 mg PO HS 09/13/20 [History] Cholecalciferol (Vitamin D3) [Vitamin D3] 100 mcg PO DAILY 09/13/20 [History] Clopidogrel Bisulfate [Clopidogrel] 75 mg PO HS 09/13/20 [History] Multivit with Iron,Minerals [Complete Senior] 1 each PO DAILY 09/13/20 [History] Potassium Chloride 10 meq PO BID 09/13/20 [History] Hx Tetanus, Diphtheria Vaccination/Date Given: No Hx Influenza Vaccination/Date Given: Yes Hx Pneumococcal Vaccination/Date Given: Yes Immunizations Up to Date: Yes Travel Risk - International Travel Have you traveled outside of the country in past 3 weeks: No - Coronavirus Screening Are you exhibiting any of the following symptoms?: No Close contact with a COVID-19 positive Pt in past 14-21 Days: No - Vaccine Status Have you recieved a Covid-19 vaccination: Yes Plc Engineer: Unknown - Vaccination Dates Dates if Unknown: n/a - Review of Systems Constitutional: No Fever, No Chills Eyes: No Symptoms Ears, Nose, & Throat: No Symptoms Respiratory: No Cough, No Dyspnea Cardiac: No Chest Pain, No Edema, No Syncope Abdominal/Gastrointestinal: No Abdominal Pain, No Nausea, No Vomiting, No Diarrhea Genitourinary Symptoms: No Dysuria Musculoskeletal: No Back Pain, No Neck Pain Skin: No Rash Neurological: Other (This), No Dizziness, No Focal Weakness, No Sensory Changes Psychological: No Symptoms Endocrine: No Symptoms All Other Systems: Reviewed and Negative - Past Medical History Pertinent Past Medical History: Yes Neurological History: Paralysis, Stroke ENT History: No Pertinent History Cardiac History: Hypertension Respiratory History: Other Endocrine Medical History: Diabetes Type II Musculoskeletal History: Osteoporosis GI Medical History: No Pertinent History History: No Pertinent History Psycho-Social History: No Pertinent History Female Reproductive Disorders: Ovarian Cancer, Uterine Cancer Other Medical History: hyster at age 26 r/t ovarian cancer - Past Surgical History Past Surgical History: Yes Neuro Surgical History: No Pertinent History Cardiac: No Pertinent History Respiratory: No Pertinent History Gastrointestinal: Appendectomy, Cholecystectomy Genitourinary: No Pertinent History Musculoskeletal: No Pertinent History Female Surgical History: Hysterectomy Other Surgical History: T&A, EGD with esoph dilated,,childbirth x two - Social History Smoking Status: Former smoker How long have you smoked: 40 YEARS Exposure to second hand smoke: No Alcohol Use: None Drug Use: none Patient Lives Alone: No Significant Family History: heart disease, hypertension - Female History Hx Last Menstrual Period: POST - Nursing Vital Signs Nursing Vital Signs: Initial Vital Signs Temperature 98.0 F 09/13/20 22:15 Pulse Rate 85 09/13/20 22:15 Respiratory Rate 18 09/13/20 22:15 Blood Pressure 160/80 09/13/20 22:15 O2 Sat by Pulse Oximetry 95 09/13/20 22:15 Pain Scale Pain Intensity 0 - Physical Exam General Appearance: mild distress Eye Exam: PERRL/EOMI, eyes nml inspection Ears, Nose, Throat Exam: normal ENT inspection, TMs normal, pharynx normal, moist mucous membranes Neck Exam: normal inspection, non-tender, supple, full range of motion Respiratory Exam: normal breath sounds, lungs clear, No respiratory distress Cardiovascular Exam: regular rate/rhythm, normal heart sounds, normal peripheral pulses Gastrointestinal/Abdomen Exam: soft, normal bowel sounds, No tenderness, No mass Back Exam: normal inspection, normal range of motion, No CVA tenderness, No vertebral tenderness Extremity Exam: normal inspection Neurologic Exam: alert, oriented x 3, cooperative, other (Right hemiparesis) SpO2 Interpretation: normal SpO2: 96 O2 Delivery: Room Air - Course EKG Interpreted by Me: RATE (91), Sinus Rhythm, Left [place] Deviation, Non- specific ST Changes - Radiology Exams Shoulder X-ray Interpretation: Interpreted by me, Negative - CT Exams Head CT Interpretation: Tele-radiologist Report, Other (No acute evidence of CVA) Ordered Tests: Active Orders 24 hr Category Date Time Status EKG-ER Only STAT Care 09/13/20 22:21 Active NPO (ED) STAT Care 09/13/20 22:21 Active HEAD WITHOUT CONTRAST [CT] Stat Exams 09/14/20 00:18 Taken SHOULDER Stat Exams 09/14/20 00:18 Taken CBC W DIFF Stat Lab 09/13/20 23:12 Completed TROPONIN Q3H Lab 09/13/20 23:12 Completed TROPONIN Q3H Lab 09/14/20 01:25 Completed TROPONIN Q3H Lab 09/14/20 04:30 Ordered TROPONIN Q3H Lab 09/14/20 07:30 Ordered TROPONIN Q3H Lab 09/14/20 10:30 Ordered Lab/Rad Data: Laboratory Result Diagrams 09/13/20 23:12 Laboratory Results 09/14/20 09/13/20 09/13/20 Range/Units 01:25 23:12 23:12 WBC 10.6 H (4.0-10.5) K/mm3 RBC 4.48 (4.1-5.4) M/mm3 Hgb 13.2 (12.0-16.0) gm/dl Hct 40.9 (35-47) % MCV 91.3 (78-100) fl MCH 29.5 (26-32) pg MCHC 32.3 (32-36) g/dl RDW 14.3 H (11.5-14.0) % Plt Count 290 (150-450) K/mm3 MPV 9.9 (7.5-11.0) fl Gran % 67.9 H (36.0-66.0) % Eos # (Auto) 0.20 (0-0.5) Absolute Lymphs (auto) 2.33 (1.0-4.6) Absolute Monos (auto) 0.82 (0.0-1.3) Lymphocytes % 22.0 L (24.0-44.0) % Monocytes % 7.7 (0.0-12.0) % Eosinophils % 1.9 (0.00-5.0) % Basophils % 0.5 (0.0-0.4) % Absolute Granulocytes 7.20 H (1.4-6.9) Basophils # 0.05 (0-0.4) Troponin I < 0.012 < 0.012 (0.000-0.034) ng/mL - Progress Progress: improved - Departure Departure Disposition: Home Clinical Impression: Right shoulder pain Condition: Stable Critical Care Time: No Referrals: EMILIANO GAMBLE [Primary Care Provider] - Instructions: Shoulder Sprain
[2020-09-14 04:26] VITALS: O2SAT 95
[2020-09-14 05:11] VITALS: BP 156/80; PULSE 106
--- NOTE | 2020-09-14 09:20 | XRAY ---
Indication: Acute mental status change. Multiple contiguous axial images obtained through the head without contrast. Comparison: September 02, 2020. Stable age-appropriate global atrophy, mild periventricular degenerative micro-ischemia, and large old left MCA infarct. No acute intracranial hemorrhage, hydrocephalus, or mass effect. Fourth ventricle is midline. Bony calvarium intact. Visualized paranasal sinuses and mastoid air cells are clear. Impression: Stable atrophy, degenerative micro-ischemia, and old left MCA infarct. No new/acute findings. Comment: Preliminary interpretation was made by [facility]. No critical discrepancy.
--- NOTE | 2020-09-14 09:23 | XRAY ---
Indication: Pain. CVA. Comparison: None 3 view left shoulder demonstrates osteopenia, moderate AC degenerative arthropathy, and old bilateral rib fractures. No other bony, articular, or soft tissue abnormalities.
== END 2020-09-14 05:17 ==
LOC: ED 22:04
DX: Z79.899 Other long term (current) drug therapy (principal); E11.9 Type 2 diabetes mellitus without complications; Z08 Encounter for follow-up examination after completed treatment for malignant neoplasm; Z85.43 Personal history of malignant neoplasm of ovary; Z85.42 Personal history of malignant neoplasm of other parts of uterus
CPT/HCPCS: 36415; 70450; 73030; 84484; 85025; 93005; 99285

== ENCOUNTER 2021-08-06 12:50 | Emergency (ER) | payer MEDICARE, OTHER ==
--- NOTE | 2021-08-06 13:27 | ERPHSYRPT ---
- History of Present Illness Time Seen by Provider: 08/06/21 13:05 Source: patient, EMS Patient Subjective Stated Complaint: Pt states "My D Dimer 1100 and my back has been hurting ever since I got my covid booster three days ago." Triage Nursing Assessment: Pt presented alert and oriented X 3, skin wpd pt able to speak in clear full sentences pt in no apaprent respiratory distress. pt has iv in her left forarm. PT resting comfortably on the bed. Physician History: This is a 75-year-old white female patient who is a resident from a local [facility] who was brought to the emergency department secondary to abnormal D- dimer that was drawn 3 days ago. Patient states that a few days ago she was having chest pain and back pain after receiving COVID booster. Because of the her symptoms, outpatient labs were drawn 2 days ago and followed up on today. Patient reports that she has a D-dimer level of 1100. The patient's primary care physician's office (Dr. Wood) told her to come to the emergency department for CTA of the chest if indicated. Patient does not have chest pain at this time. He does have some mild back pain but is nowhere near the pain that she was having a few days ago. She is not short of breath. She has no other complaints. The patient is diabetic and has a history of hypertension. Timing/Duration: day(s) (Several days) Severity: mild Associated Symptoms: denies symptoms, No nausea, No vomiting, No abdominal pain, No shortness of breath, No chest pain Allergies/Adverse Reactions: tape Allergy (Mild, Uncoded 09/13/20 23:42) Home Medications: Glimepiride 2 mg [Amaryl 2 MG] 1 mg PO DAILY 10/03/12 [History] Dicyclomine HCl 20 mg [Bentyl 20 mg] 20 mg PO QID 11/09/13 [History] Diphenoxylate HCl/Atropine [Lomotil] 1 udtab PO QIDPRN PRN 11/09/13 [History] Metoprolol Tartrate 50 mg [Lopressor 50 MG] 125 mg PO BID 11/09/13 [History] Cholestyramine Light 4 gm [QUESTRAN Light 4 GM Packet] 4 gm PO DAILY 10/06/16 [History] Hydralazine HCl 100 mg PO TID 10/06/16 [History] Hydrocodone/Acetaminophen [Hydrocodon-Acetaminoph 7.5-325] 1 each PO TIDPRN PRN 10/06/16 [History] cloNIDine HCL [Catapres] 0.2 mg TOP WEEKLY 10/06/16 [History] Fexofenadine/Pseudoephedrine [Anitra-D 24 Hour Tablet] 1 ea PO DAILY 10/20/16 [History] Ascorbic Acid [Vitamin C] 1,000 mg PO DAILY 09/13/20 [History] Atorvastatin Calcium [Lipitor 40Mg] 40 mg PO HS 09/13/20 [History] Cholecalciferol (Vitamin D3) [Vitamin D3] 100 mcg PO DAILY 09/13/20 [History] Clopidogrel Bisulfate [Clopidogrel] 75 mg PO HS 09/13/20 [History] Multivit with Iron,Minerals [Complete Senior] 1 each PO DAILY 09/13/20 [History] Potassium Chloride 10 meq PO BID 09/13/20 [History] Hx Tetanus, Diphtheria Vaccination/Date Given: No Hx Influenza Vaccination/Date Given: Yes Hx Pneumococcal Vaccination/Date Given: Yes Immunizations Up to Date: Yes Travel Risk - International Travel Have you traveled outside of the country in past 3 weeks: No - Coronavirus Screening Are you exhibiting any of the following symptoms?: No Close contact with a COVID-19 positive Pt in past 14-21 Days: No - Vaccine Status Have you recieved a Covid-19 vaccination: Yes Graphic Art Designer: Unknown - Vaccination Dates Dates if Unknown: n/a - Review of Systems Constitutional: No Symptoms Eyes: No Symptoms Ears, Nose, & Throat: No Symptoms Respiratory: No Symptoms Cardiac: No Symptoms Abdominal/Gastrointestinal: No Symptoms Genitourinary Symptoms: No Symptoms Musculoskeletal: Back Pain (Mild) Skin: No Symptoms Neurological: No Symptoms Psychological: No Symptoms Endocrine: No Symptoms Hematologic/Lymphatic: No Symptoms Immunological/Allergic: No Symptoms All Other Systems: Reviewed and Negative - Past Medical History Pertinent Past Medical History: Yes Neurological History: Paralysis, Stroke ENT History: No Pertinent History Cardiac History: Hypertension Respiratory History: Other Endocrine Medical History: Diabetes Type II Musculoskeletal History: Osteoporosis GI Medical History: No Pertinent History History: No Pertinent History Psycho-Social History: No Pertinent History Female Reproductive Disorders: Ovarian Cancer, Uterine Cancer Other Medical History: hyster at age 26 r/t ovarian cancer - Past Surgical History Past Surgical History: Yes Neuro Surgical History: No Pertinent History Cardiac: No Pertinent History Respiratory: No Pertinent History Gastrointestinal: Appendectomy, Cholecystectomy Genitourinary: No Pertinent History Musculoskeletal: No Pertinent History Female Surgical History: Hysterectomy Other Surgical History: T&A, EGD with esoph dilated,,childbirth x two - Social History Smoking Status: Former smoker How long have you smoked: 40 YEARS Exposure to second hand smoke: No Alcohol Use: None Drug Use: none Patient Lives Alone: No Significant Family History: heart disease, hypertension - Nursing Vital Signs Nursing Vital Signs: Initial Vital Signs Temperature 98.2 F 08/06/21 12:50 Pulse Rate 92 H 08/06/21 12:50 Respiratory Rate 20 08/06/21 12:50 Blood Pressure 163/77 08/06/21 12:50 O2 Sat by Pulse Oximetry 98 08/06/21 12:50 Pain Scale Pain Intensity 0 - Physical Exam General Appearance: no apparent distress, alert Eye Exam: PERRL/EOMI, eyes nml inspection Ears, Nose, Throat Exam: normal ENT inspection, moist mucous membranes Neck Exam: normal inspection, non-tender, supple, full range of motion Respiratory Exam: normal breath sounds, lungs clear, airway intact, No chest tenderness, No respiratory distress Cardiovascular Exam: regular rate/rhythm, normal heart sounds, normal peripheral pulses Gastrointestinal/Abdomen Exam: soft, normal bowel sounds, No tenderness Pelvic Exam: not done Rectal Exam: not done Back Exam: normal inspection, normal range of motion, No CVA tenderness, No vertebral tenderness Extremity Exam: normal inspection, normal range of motion, pelvis stable Neurologic Exam: alert, oriented x 3, cooperative, photoengraving finisher II-XII nml as tested, normal mood/affect, sensation nml Skin Exam: normal color, warm, dry Lymphatic Exam: No adenopathy SpO2 Interpretation: normal SpO2: 98 O2 Delivery: Room Air - Course Nursing assessment & vital signs reviewed: Yes Ordered Tests: Active Orders 24 hr Category Date Time Status IV Insertion STAT Care 08/06/21 13:27 Active CHEST WITH CONTRAST [CT] Stat Exams 08/06/21 15:26 Taken CBC W DIFF Stat Lab 08/06/21 13:35 Completed CMP Stat Lab 08/06/21 13:35 Completed D-DIMER QUANTITATIVE Stat Lab 08/06/21 13:35 Completed NT PRO BNP Stat Lab 08/06/21 13:35 Completed Medication Summary Discontinued Medications Generic Name Dose Route Start Last Admin Trade Name Jesu PRN Reason Stop Dose Admin Sodium Chloride 500 mls @ 500 mls/hr 08/06/21 13:28 08/06/21 14:40 Sodium Chloride 0.9% 500 Ml IV 08/06/21 14:27 Infused .Q1H ONE Infusion Sodium Chloride Confirm 08/06/21 13:36 Sodium Chloride 0.9% 500 Ml Administered 08/06/21 13:37 Dose 500 mls @ ud IV .STK-MED ONE Lab/Rad Data: Laboratory Result Diagrams 08/06/21 13:35 08/06/21 13:35 Laboratory Results 08/06/21 08/06/21 08/06/21 Range/Units 13:35 13:35 13:35 WBC 7.2 (4.0-10.5) K/mm3 RBC 4.22 (4.1-5.4) M/mm3 Hgb 12.8 (12.0-16.0) gm/dl Hct 39.4 (35-47) % MCV 93.4 (78-100) fl MCH 30.3 (26-32) pg MCHC 32.5 (32-36) g/dl RDW 14.3 H (11.5-14.0) % Plt Count 259 (150-450) K/mm3 MPV 10.5 (7.5-11.0) fl Gran % 63.8 (36.0-66.0) % Eos # (Auto) 0.14 (0-0.5) Absolute Lymphs (auto) 1.74 (1.0-4.6) Absolute Monos (auto) 0.68 (0.0-1.3) Lymphocytes % 24.3 (24.0-44.0) % Monocytes % 9.5 (0.0-12.0) % Eosinophils % 2.0 (0.00-5.0) % Basophils % 0.4 (0.0-0.4) % Absolute Granulocytes 4.56 (1.4-6.9) Basophils # 0.03 (0-0.4) D-Dimer 901 H* (215-500) ng/mL Sodium 138 (137-145) mmol/L Potassium 3.5 (3.5-5.1) mmol/L Chloride 102 (98-107) mmol/L Carbon Dioxide 25 (22-30) mmol/L Anion Gap 14.6 (5-15) MEQ/L BUN 14 (7-17) mg/dL Creatinine 0.57 (0.52-1.04) mg/dL Estimated GFR > 60.0 ML/MIN Glucose 115 H (74-106) mg/dL Calcium 9.2 (8.4-10.2) mg/dL Total Bilirubin 0.40 (0.2-1.3) mg/dL AST 31 (14-36) U/L ALT 20 (0-35) U/L Alkaline Phosphatase 78 (38-126) U/L NT-Pro-B Natriuret Pep 116 (0-900) pg/mL Serum Total Protein 7.0 (6.3-8.2) g/dL Albumin 3.9 (3.5-5.0) g/dL - Progress Progress: improved, pain not gone completely, re-examined Progress Note: 08/06/21 17:27 CTA of chest shows no pulmonary embolus. There is no acute cardiopulmonary process. Counseled pt/family regarding: lab results, diagnosis, need for follow-up, rad results - Departure Departure Disposition: Home Clinical Impression: Back pain, Elevated d-dimer Condition: Stable Critical Care Time: No Referrals: EMILIANO GAMBLE [Primary Care Provider] - Follow up/PCP as directed Additional Instructions: Continue your same correction medication and instructions. Follow-up with your primary care physician as needed.
[2021-08-06] MEDS ORDERED: Sodium Chloride 0.9% 500 ML 500 ML IV ONE ×2 (13:28→13:36)
[2021-08-06 14:03] LABS: Hematocrit 39.4 % (35-47); Hemoglobin 12.8 gm/dl (12.0-16.0); Mean Cell Volume 93.4 fl (78-100); Mean Corpuscular Hemoglobin 30.3 pg (26-32); Mean Corpuscular Hgb Concent. 32.5 g/dl (32-36); Mean Platelet Volume 10.5 fl (7.5-11.0); Platelet Count 259 K/mm3 (150-450); Red Blood Count 4.22 M/mm3 (4.1-5.4); Red Cell Distribution Width 14.3 % (11.5-14.0); White Blood Count 7.2 K/mm3 (4.0-10.5)
[2021-08-06 14:04] LABS: Absolute Neutrophil Ct (ANC) 4.56 (1.4-6.9); Basophil (Absolute #) 0.03 (0-0.4); Eosinophil (Absolute #) 0.14 (0-0.5); Lymphocyte (Absolute #) 1.74 (1.0-4.6); Lymphocytes % 24.3 % (24.0-44.0); Monocyte (Absolute #) 0.68 (0.0-1.3); Monocytes % 9.5 % (0.0-12.0); Neutrophil % 63.8 % (36.0-66.0)
[2021-08-06 15:18] LABS: ALBUMIN 3.9 g/dL (3.5-5.0); ALKALINE PHOSPHATASE 78 U/L (38-126); ANION GAP 14.6 MEQ/L (5-15); BLOOD UREA NITROGEN 14 mg/dL (7-17); CHLORIDE 102 mmol/L (98-107); Calcium 9.2 mg/dL (8.4-10.2); Carbon Dioxide 25 mmol/L (22-30); Creatinine 1 0.57 mg/dL (0.52-1.04); EST GLOMERULAR FILTRATION RATE > 60.0 ML/MIN; Glucose 115 mg/dL (74-106); NT PRO BNP 116 pg/mL (0-900); Potassium 3.5 mmol/L (3.5-5.1); SGOT/AST 31 U/L (14-36); SGPT/ALT 20 U/L (0-35); SODIUM 138 mmol/L (137-145)
[2021-08-06 17:29] VITALS: O2SAT 98
[2021-08-06 17:51] VITALS: BP 115/67; PULSE 76
--- NOTE | 2021-08-07 06:56 | XRAY ---
Indication: Chest and abdomen pain. Elevated d-dimer. Pulmonary embolus. Multiple contiguous images obtained through the chest using 80 cc Isovue 370 contrast and PE protocol. Comparison: None Good opacification of the pulmonary arteries to include the lobar and segmental branches. No pulmonary embolus. Heart is borderline enlarged. Aorta is moderately arteriosclerotic without aneurysm/dissection. Small right hilar calcified nodes. No pathologic mediastinal/hilar lymphadenopathy. Lungs demonstrates moderate bibasilar subsegmental atelectasis/scarring. No suspicious pulmonary mass, infiltrate, or effusion. Bony thorax intact with osteopenia, moderate degenerative changes throughout the spine, and remote T8/T9/T12 compression fractures greatest T8 with near-complete collapse. Limited upper abdomen demonstrates cholecystectomy clips and splenic calcified granulomas. Impression: 1. Negative pulmonary embolus. No acute cardiopulmonary abnormalities. 2. Borderline cardiomegaly, bibasilar subsegmental atelectasis/scarring, chronic bony findings, and old granulomatous disease.
== END 2021-08-06 18:26 | disposition home or self-care (01) ==
LOC: ED 12:50
DX: M54.9 Dorsalgia, unspecified (principal); R79.1 Abnormal coagulation profile; I10 Essential (primary) hypertension; E11.9 Type 2 diabetes mellitus without complications; Z79.84 Long term (current) use of oral hypoglycemic drugs; Z79.891 Long term (current) use of opiate analgesic; Z79.899 Other long term (current) drug therapy
CPT/HCPCS: 36000; 36415; 71260; 80053; 83880; 85025; 85379; 96360; 99284